=== PATIENT | male | born 1990 | race Caucasian/White ===

== ENCOUNTER 2017-04-26 14:26 | Emergency (ER) | payer OTHER ==
[2017-04-26 14:36] VITALS: BP 139/81
[2017-04-26] MEDS ORDERED: Lidocaine 1% 20 ML MDV INJECT ONE (14:39)
[2017-04-26] MEDS ORDERED: Lidocaine 1% 10 ML MDV ONE (14:46)
[2017-04-26] MEDS ORDERED: Ketorolac 30 MG/ML SDV IVPUSH ONE (14:48)
[2017-04-26] MEDS ORDERED: Sodium Chloride 0.9% 10 ML Syringe FLUSH PRN (14:48)
[2017-04-26] MEDS ORDERED: ceFAZolin 1 GM in Premix Bag 1 BAG IV ONE (14:48)
[2017-04-26] MEDS ORDERED: HYDROmorphone 0.5 MG/0.5 ML Syringe IVPUSH ONE ×2 (14:49→16:53)
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
[2017-04-26] MEDS ORDERED: Diphtheria,Pertussis(Acell),Tetanus Vaccine 0.5 ML SDV IM ONE (16:52)
[2017-04-26] MEDS ORDERED: Acetaminophen/oxyCODONE 325-5 MG Tab PO ONE (16:53)
== END 2017-04-26 17:20 | disposition home or self-care (01) ==
LOC: JD.ED 14:26
DX: S61.213A Laceration without foreign body of left middle finger without damage to nail, initial encounter (principal); W31.89XA Contact with other specified machinery, initial encounter; Y92.65 Oil rig as the place of occurrence of the external cause; Y99.0 Civilian activity done for income or pay
CPT/HCPCS: 12002; 90471; 90715; 96365; 96375; 99283; A9270; J0690; J1170; J1885; J7050; 12042; 99284-25

== ENCOUNTER 2017-04-27 16:09 | Emergency (ER) | payer OTHER ==
[2017-04-27 16:24] VITALS: BP 130/70
--- NOTE | 2017-04-27 17:04 | EDM.PDOC ---
ED HPI GENERAL MEDICAL PROBLEM - General Chief Complaint: Upper Extremity Injury/Pain Stated Complaint: MIDDLE FINGER PAIN CONCERNS ABOUT MEDICINE FOR IT Time Seen by Provider: 04/27/17 16:45 Source of Information: Reports: Patient History Limitations: Reports: No Limitations - History of Present Illness INITIAL COMMENTS - FREE TEXT/NARRATIVE: Patient is a 26-year-old male who presents to the ED complaining of pain to the left middle finger and upset stomach with taking the Keflex. Patient was evaluated yesterday in the ED by myself after suffering a crush injury to the affected finger. Patient had 2 fairly large lacerations to the palmar and also dorsal aspect of the finger that were involving the flexor and extensor tendons. Patient was started on Keflex 500 mg 4 times a day and was discharged home with hydrocodone for pain. Patient has increasing pain to the affected finger. He was instructed by the occupational med doctor to cleanse the finger 3 times a day with reapplication of triple antibiotics ointment in the morning and evening. He has noticed that the dressing has been sticking to the wound sites causing worsening pain. He has not noticed any increased redness, swelling , or purulent drainage. Pain is localized. He has not been applying any ice to the affected finger nor has he been elevating it when able. States his stomach is upset with taking the Keflex. He has no diarrhea. Minimal nausea. He has been taking ibuprofen with the Keflex as well. He denies any additional complaints at this time. Left Hand Pain Score (Numeric/FACES): 7 - Related Data Allergies Allergy/AdvReac Type Severity Reaction Status Date / Time No Known Allergies Allergy Verified 04/27/17 16:19 Home Meds: Home Meds Cephalexin [Keflex] 500 mg PO Q6HR #40 cap 04/26/17 [Rx] Acetaminophen/HYDROcodone [Lind 325-5 MG] 1 tab PO Q6H PRN #15 tablet 04/27/17 [Rx] Ondansetron [Zofran ODT] 4 mg PO Q6H PRN #12 tab.dis 04/27/17 [Rx] Past Medical History - Past Health History Medical/Surgical History: Denies Medical/Surgical History - Past Surgical History HEENT Surgical History: Reports: Oral Surgery Other HEENT Surgeries/Procedures: wisdom teeth removed GI Surgical History: Reports: Hernia, Inguinal Social & Family History - Family History Family Medical History: Noncontributory - Tobacco Use Smoking Status *Q: Never Smoker - Caffeine Use Caffeine Use: Reports: Coffee - Recreational Drug Use Recreational Drug Use: No - Living Situation & Occupation Living situation: Reports: , with Family Occupation: Employed Review of Systems - Review of Systems Review Of Systems: ROS reveals no pertinent complaints other than HPI. ED EXAM, GENERAL - Physical Exam Exam: See Below Exam Limited By: No Limitations General Appearance: Alert, WD/WN, No Apparent Distress Ears: Hearing Grossly Normal Nose: Normal Inspection Throat/Mouth: Normal Voice, No Airway Compromise Neck: Normal Inspection, Supple Respiratory/Chest: No Respiratory Distress, No Accessory Muscle Use Cardiovascular: Normal Peripheral Pulses, Regular Rate, Rhythm Peripheral Pulses: 2+: Radial (L) Extremities: Other (Left middle finger: Swollen, laceration intact with sutures present. No increasing redness, or purulent drainage present. Pain with palpation. Patient able extend and flex the finger against resistance with minimal discomfort. No sensory deficits distally. He is not able to fully extend or flex the finger at the PIP/DIP/MCP secondary to swelling present. No additional concerning findings at this point.) Neurological: Alert, Oriented, CN II-XII Intact, Normal Cognition, No Motor/ Sensory Deficits Psychiatric: Normal Affect, Normal Mood Skin Exam: Warm, Dry, Normal Color Course - Vital Signs Last Recorded V/S: Last Vital Signs Temp 98.5 F 04/27/17 16:20 Pulse 54 L 04/27/17 16:20 Resp 16 04/27/17 16:20 BP 130/70 04/27/17 16:20 Pulse Ox 99 04/27/17 16:20 - Re-Assessments/Exams Free Text/Narrative Re-Assessment/Exam: Reexamination of the finger did not elicit any concerning findings at this point. Lacerations are intact. Patient has no sensory deficits distally. He is able to extend and flex the finger against resistance with minimal discomfort. Decreased flexion and extension at the MCP, PIP, DIP secondary to swelling. Will have the wound redressed with bacitracin and nonadherent dressing. Splint will be applied. Patient will follow back up with occupational med provider and Dr. Lemuel waite for reevaluation. In addition will was fried patient a prescription for Zofran to take as needed for nausea. I have instructed the patient to refrain from taking ibuprofen and Keflex at the same time. Departure - Departure Time of Disposition: 17:04 Disposition: Home, Self-Care 01 Condition: Good Clinical Impression: Laceration of left middle finger with tendon involvement Finger laceration involving tendon Qualifiers: Encounter type: initial encounter Qualified Code(s): S61.219A - Laceration without foreign body of unspecified finger without damage to nail, initial encounter - Discharge Information Prescriptions: Acetaminophen/HYDROcodone [Lind 325-5 MG] 1 tab PO Q6H PRN #15 tablet PRN Reason: Pain (Severe 7-10) Ondansetron [Zofran ODT] 4 mg PO Q6H PRN #12 tab.dis PRN Reason: Nausea/Vomiting Instructions: Laceration Care, Adult, [id number] Referrals: PCP,None [Primary Care Provider] - Forms: ED Department Discharge Additional Instructions: Utilize Tylenol and ibuprofen in alternating fashion for pain. Place ice to affected area 4-6 times daily, 20 minutes in duration, do not apply ice directly on the skin. Keep area clean and dry. Wash three times daily with soap and water, pat dry, reapply Triple Antibiotic ointment in the a.m. and p.m with new dressing. Elevate when able to reduce any swelling and pain. Wear splint until evaluated by Dr. Pitts. Continue taking Keflex as prescribed. Utilize Zofran 1 tablet 6 hours as needed for nausea. Suggest taking ibuprofen and Keflex together since this may be causing some stomach irritation. Dr. Pitts orthopedic surgeon and occupational med provider as scheduled for continued reevaluation and treatment. Return to ED as needed for any new or worsening symptoms.
== END 2017-04-27 17:15 | disposition home or self-care (01) ==
LOC: JD.ED 16:09
DX: S61.213A Laceration without foreign body of left middle finger without damage to nail, initial encounter (principal); Z98.890 Other specified postprocedural states; W23.0XXA Caught, crushed, jammed, or pinched between moving objects, initial encounter
CPT/HCPCS: 99282; 99283

== ENCOUNTER 2017-04-28 21:14 | Emergency (ER) | payer OTHER ==
[2017-04-28 21:26] VITALS: BP 139/98
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
== END 2017-04-28 23:20 | disposition home or self-care (01) ==
LOC: JD.ED 21:14
DX: S67.193D Crushing injury of left middle finger, subsequent encounter (principal); X58.XXXD Exposure to other specified factors, subsequent encounter
CPT/HCPCS: 99282

== ENCOUNTER 2017-07-04 22:09 | Emergency (ER) | payer OTHER ==
[2017-07-04 22:26] VITALS: BP 154/94
--- NOTE | 2017-07-04 22:42 | EDM.PDOC ---
ED HPI GENERAL MEDICAL PROBLEM - General Chief Complaint: Skin Complaint Stated Complaint: SHOULDER LEFT HURTS THINKS INFECTION Time Seen by Provider: 07/04/17 22:34 Source of Information: Reports: Patient History Limitations: Reports: No Limitations - History of Present Illness INITIAL COMMENTS - FREE TEXT/NARRATIVE: 27-year-old male attends the ED with painful red swelling left upper shoulder area. Patient reports that 6 days ago he received a steroid injection from a friend. He states that he felt a lump in the area about a day later and it has remained somewhat sore. He states that it's developed increased redness and pain over the last 24-36 hours. Patient was seen in clinic earlier today and identified to have influenza A. [place] out of the [place]. Is thus started on Tamiflu. Says fever and chills related to the influenza and will be impossible to tell whether or not the cellulitis is continuing to febrile illness. Patient reports influenza screen today was positive for influenza A virus.. A chest x- ray done to rule out a pneumonia and was reported to be negative. He did not have lab work performed. Onset: Gradual Onset Date: 07/03/17 Duration: Day(s): Location: Reports: Upper Extremity, Left Quality: Reports: Ache (Left shoulder in the deltoid distribution.), Burning Severity: Moderate Improves with: Reports: None Worsens with: Reports: Other Context: Reports: Other (Steroid injection in this area 6 days ago. Given by a friend.). Denies: Activity, Exercise (Touching the area.), Lifting, Sick Contact Associated Symptoms: Reports: Cough, Diaphoresis, Fever/Chills (Diagnosed earlier today with influenza A virus and is on Tamiflu.), Other (Anorexia). 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 (Motrin for pain and fever relief) Left Upper Arm Pain Score (Numeric/FACES): 4 - Related Data Allergies Allergy/AdvReac Type Severity Reaction Status Date / Time No Known Allergies Allergy Verified 07/04/17 22:21 Home Meds: Home Meds Ciprofloxacin HCl [Cipro] 500 mg PO BID #14 tablet 07/04/17 [Rx] Doxycycline [Vibramycin] 100 mg PO Q12HR #20 cap 07/04/17 [Rx] Oseltamivir [Tamiflu] 75 mg PO BID 11/27/17 [History] Past Medical History - Past Health History Medical/Surgical History: Denies Medical/Surgical History - Past Surgical History HEENT Surgical History: Reports: Oral Surgery Other HEENT Surgeries/Procedures: wisdom teeth removed GI Surgical History: Reports: Hernia, Inguinal Social & Family History - Family History Family Medical History: Noncontributory - Tobacco Use Smoking Status *Q: Never Smoker Packs/Tins Daily: 0.5 - Caffeine Use Caffeine Use: Reports: None - Recreational Drug Use Recreational Drug Use: No - Living Situation & Occupation Living situation: Reports: , with Spouse, with Family Occupation: Employed ED ROS GENERAL - Review of Systems Review Of Systems: See Below Constitutional: Reports: Fever, Chills, Malaise, Weakness, Fatigue, Decreased Appetite. Denies: Weight Loss HEENT: Denies: Ear Pain, Throat Swelling Respiratory: Reports: Cough (Paroxysmal cough for the most part nonproductive). Denies: Wheezing, Pleuritic Chest Pain Cardiovascular: Reports: No Symptoms Endocrine: Reports: Fatigue GI/Abdominal: Reports: Decreased Appetite. Denies: Abdominal Pain : Reports: No Symptoms Musculoskeletal: Reports: Muscle Pain (Generalized myalgia.) Skin: Reports: Erythema Neurological: Reports: No Symptoms Psychiatric: Reports: No Symptoms Hematologic/Lymphatic: Reports: No Symptoms Immunologic: Reports: No Symptoms ED EXAM, SKIN/RASH Exam: See Below Exam Limited By: No Limitations General Appearance: Alert, WD/WN, No Apparent Distress, Other Extremities: Other (Evaluation of the left upper extremity shows erythema in the deltoid muscle distribution partially 5 cm inferior to the acromion process. Skin is warm to touch and red.) Neurological: Alert, Oriented, CN II-XII Intact, Normal Cognition Psychiatric: Normal Affect, Normal Mood Skin: Warm, Dry, Intact, Normal Color, No Rash Course - Vital Signs Last Recorded V/S: Last Vital Signs Temp 37.2 C 07/04/17 22:22 Pulse 97 07/04/17 22:22 Resp 18 07/04/17 22:22 BP 154/94 H 07/04/17 22:22 Pulse Ox 96 07/04/17 22:22 - Orders/Labs/Meds Orders: Active Orders 24 hr Category Date Time Status Peripheral IV Care [RC] . DIRECTED Care 07/04/17 22:43 Active Sodium Chloride 0.9% [Saline Flush] Med 07/04/17 22:43 Active 10 ml FLUSH ASDIRECTED PRN Peripheral IV Insertion Adult [OM.PC] Stat Oth 07/04/17 22:43 Ordered Medication Orders Sodium Chloride (Saline Flush) 10 ml FLUSH ASDIRECTED PRN PRN Reason: Keep Vein Open Last Admin: 07/04/17 22:53 Dose: 10 ml Labs: Laboratory Tests 07/04/17 07/04/17 Range/Units 22:50 22:50 WBC 6.87 (4.23-9.07) K/mm3 RBC 5.52 (4.63-6.08) M/mm3 Hgb 16.1 (13.7-17.5) gm/L Hct 45.8 (40.1-51.0) % MCV 83.0 (79.0-92.2) fl MCH 29.2 (25.7-32.2) pg MCHC 35.2 (32.2-35.5) g/dl RDW Std Deviation 43.3 (35.1-43.9) fL Plt Count 179 (163-337) K/mm3 MPV 9.8 (9.4-12.3) fl Neutrophils % (Manual) 61 H (40-60) % Band Neutrophils % 0 (0-10) % Lymphocytes % (Manual) 26 (20-40) % Atypical Lymphs % 0 % Monocytes % (Manual) 8 (2-10) % Eosinophils % (Manual) 5 (0.8-7.0) % Basophils % (Manual) 0 L (0.2-1.2) Platelet Estimate Adequate Plt Morphology Comment Normal RBC Morph Comment Normal Sodium 139 (136-145) mEq/L Potassium 3.3 L (3.5-5.1) mEq/L Chloride 103 (98-107) mEq/L Carbon Dioxide 24 (21-32) mEq/L Anion Gap 15.3 H (5-15) BUN 16 (7-18) mg/dL Creatinine 1.2 (0.7-1.3) mg/dL Est Cr Clr Drug Dosing 97.61 mL/min Estimated GFR (MDRD) > 60 (>60) mL/min BUN/Creatinine Ratio 13.3 L (14-18) Glucose 83 (74-106) mg/dL Calcium 8.7 (8.5-10.1) mg/dL Total Bilirubin 0.4 (0.2-1.0) mg/dL AST 58 H (15-37) U/L ALT 79 H (16-63) U/L Alkaline Phosphatase 40 L (46-116) U/L C-Reactive Protein 1.6 H* (<1.0) mg/dL Total Protein 7.2 (6.4-8.2) g/dl Albumin 3.8 (3.4-5.0) g/dl Globulin 3.4 gm/dL Albumin/Globulin Ratio 1.1 (1-2) Meds: Medications Generic Name Dose Route Start Last Admin Trade Name Freq PRN Reason Stop Dose Admin Sodium Chloride 10 ml 07/04/17 22:43 07/04/17 22:53 Saline Flush FLUSH 10 ml ASDIRECTED PRN Administration Keep Vein Open Discontinued Medications Generic Name Dose Route Start Last Admin Trade Name Freq PRN Reason Stop Dose Admin Doxycycline Hyclate 200 mg 07/04/17 22:44 07/04/17 22:53 Vibramycin PO 07/04/17 22:45 200 mg ONETIME ONE Administration Ceftriaxone Sodium 2 gm/ 100 mls @ 200 mls/hr 07/04/17 22:43 07/04/17 22:52 Sodium Chloride IV 07/04/17 23:12 200 mls/hr ONETIME ONE Administration - Radiology Interpretation Free Text/Narrative:: 27-year-old male presents the ED for evaluation of left shoulder pain. Patient reports erythema and swelling in this area. He reports a friend gave him a steroid injection proximal be 6 days ago in the left deltoid area. He felt a nodular swollen area about a day and a half after the injection suggesting possible hematoma formation. Subsequently the areas become inflamed reddened and increasingly painful over the last 24 hours. Interestingly he presented to the clinic earlier today with a three-day history of paroxysmal cough body ache and headache and diagnosed with influenza A. He is currently on Tamiflu. Did have a chest x-ray done today which was proved to be negative for pneumonia. Examination does reveal inflammation of the skin and erythema and increased warmth in the distribution of the upper deltoid muscle. He is afebrile at this time. Plan suspect staph aureus cellulitis. Rocephin 2 g IV will be given. Routine labs collected and CRP but no blood cultures as he is afebrile at this time. Also given doxycycline 200 mg orally for MRSA coverage. Plan will be to allow him to go home on oral antibiotics for the next 10 days i.e. Cipro 500 mg twice a day 4-7 days and doxycycline 100 mg twice a day for 10 days. - Re-Assessments/Exams Free Text/Narrative Re-Assessment/Exam: 07/04/17 23:36 labs reveal a normal white count at 6.87 with 61% neutrophils and no bands reported. Hemoglobin is 16.1 with a hematocrit of 45.8. Platelets 179,000. Chemistries essentially normal other than a slightly low serum potassium at 3.3 characteristic of not eating much the last few days due to influenza. Anion gap is 15.3. CRP was 1.6. Therefore the patient does not show any significant signs of systemic infection at this time. He is completed 2 g of Rocephin IV. He will be discharged home on doxycycline 100 mg twice daily for 10 days and Cipro 500 mg twice a day for 7 days to clear up cellulitis left deltoid aspect of the shoulder. Departure - Departure Time of Disposition: 23:32 Disposition: Home, Self-Care 01 Condition: Fair Clinical Impression: Cellulitis Qualifiers: Site of cellulitis: extremity Site of cellulitis of extremity: upper extremity Laterality: left Qualified Code(s): L03.114 - Cellulitis of left upper limb - Discharge Information Prescriptions: Doxycycline [Vibramycin] 100 mg PO Q12HR #20 cap Ciprofloxacin HCl [Cipro] 500 mg PO BID #14 tablet Instructions: Cellulitis, Adult Referrals: PCP,None [Primary Care Provider] - Forms: ED Department Discharge Additional Instructions: Evaluation in the emergency room tonight in regards to increasing pain and swelling and redness of the left upper shoulder. This has developed since an IM injection of steroid was given by her friend approximate 6 days ago. Examination reveals infection under the skin which we call cellulitis. This is almost always caused by a skin organism called staph aureus. You're already clinically ill with influenza A virus diagnosed earlier today. You're therefore treated with intravenous antibiotic Rocephin 2 g and started on oral doxycycline 200 mg as well. Treatment at home will be to continue oral antibiotic Cipro 500 mg twice a day for 1 week and doxycycline 100 mg tablet twice daily for 10 days to ensure eradication of skin infection. These medications should interact okay with her Tamiflu and you are advised to continue with this. Continue Motrin 600 mg every 6 hours needed for fever and/ or muscle pain relief and headache relief. Expect redness and swelling of the left upper shoulder to look and feel much better over the next 48-72 hours. If swelling redness are not markedly improved in 72 hours time he need to return to medical care. - My Orders Last 24 Hours: My Active Orders 07/04/17 22:43 Peripheral IV Care [RC] . DIRECTED Sodium Chloride 0.9% [Saline Flush] 10 ml FLUSH ASDIRECTED PRN Peripheral IV Insertion Adult [OM.PC] Stat - Assessment/Plan Last 24 Hours: My Active Orders 07/04/17 22:43 Peripheral IV Care [RC] . DIRECTED Sodium Chloride 0.9% [Saline Flush] 10 ml FLUSH ASDIRECTED PRN Peripheral IV Insertion Adult [OM.PC] Stat
[2017-07-04] MEDS ORDERED: cefTRIAXone 2 GM in Sodium Chloride 0.9% 100 ML IV ONE (22:43)
[2017-07-04] MEDS ORDERED: Sodium Chloride 0.9% 10 ML Syringe FLUSH PRN (22:43)
[2017-07-04] MEDS ORDERED: Doxycycline 100 MG Cap PO ONE (22:44)
== END 2017-07-04 23:35 | disposition home or self-care (01) ==
LOC: JD.ED 22:09
DX: L03.114 Cellulitis of left upper limb (principal)
CPT/HCPCS: 36415; 80053; 85025; 86140; 96365; 99283; A9270; J0696; J7030; J7050

== ENCOUNTER 2017-10-25 18:39 | Inpatient (IN) | payer OTHER ==
[2017-10-25] MEDS ORDERED: HYDROmorphone 0.5 MG/0.5 ML SYRINGE IVPUSH ONE ×2 (19:06→20:43)
[2017-10-25] MEDS ORDERED: Metoclopramide 10 MG/2 ML SDV IVPUSH ONE (19:07)
--- NOTE | 2017-10-25 19:11 | EDM.PDOC ---
ED HPI GENERAL MEDICAL PROBLEM - General Chief Complaint: Chest Pain Stated Complaint: PAIN UNDER RT RIB Time Seen by Provider: 10/25/17 19:00 Source of Information: Reports: Patient History Limitations: Reports: No Limitations - History of Present Illness INITIAL COMMENTS - FREE TEXT/NARRATIVE: 27-year-old male presents to the ED with diffuse pain along the right costal margin rating down the lateral aspect of the costal margin to around infrascapular area. Pain has been constant for the last 2-1/2 days. Barely slept at all last night due to no position being comfortable. Hurts to breathe hurts to cough or sneeze. Pain is not aggravated by eating however. Bowel function is negative for any diarrhea. He is not aware of any fever or chills. Associated mild intermittent nausea due to the intensity of the pain. No dysuria urgency frequency or blood noticed in the urine. No previous similar problems. Did have 3-1/[address] [employer] but usually doesn't drink much. No associated nausea vomiting after drinking. No trouble swallowing. No prone to heartburn. No previous abdominal surgery. 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 Onset: Gradual Onset Date: 10/22/17 Duration: Day(s): Location: Reports: Abdomen (Right upper quadrant of the abdomen along the costal margin from epigastrium to right infrascapular area.) Quality: Reports: Ache (Pain is constant with a intermittent sharp stabbing pain with deep breathing.), Sharp, Stabbing Severity: Moderate Improves with: Reports: Rest Worsens with: Reports: Other (As with deep breathing coughing and sneezing.), Movement (Breathing shallowly and lying really still helps somewhat.) Context: Denies: Activity, Exercise, Lifting, Sick Contact, Trauma Associated Symptoms: Reports: Shortness of Breath (Can't take a deep breath as it makes the pain worse.). 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 (see below) Right Chest Pain Score (Numeric/FACES): 8 - Related Data Allergies Allergy/AdvReac Type Severity Reaction Status Date / Time No Known Allergies Allergy Verified 10/25/17 18:52 Home Meds: Home Meds Minocycline [Minocin] 100 mg PO BID 10/25/17 [History] Propranolol [Inderal LA 24 Hr] 60 mg PO DAILY 10/25/17 [History] Past Medical History - Past Health History Medical/Surgical History: Denies Medical/Surgical History - Past Surgical History HEENT Surgical History: Reports: Oral Surgery Other HEENT Surgeries/Procedures: wisdom teeth removed GI Surgical History: Reports: Hernia, Inguinal Social & Family History - Family History Family Medical History: Noncontributory - Tobacco Use Smoking Status *Q: Never Smoker Packs/Tins Daily: 0.5 - Caffeine Use Caffeine Use: Reports: None - Recreational Drug Use Recreational Drug Use: No - Living Situation & Occupation Living situation: Reports: , with Spouse, with Family Occupation: Employed ED ROS GENERAL - Review of Systems Review Of Systems: See Below Constitutional: Reports: Fatigue (from not sleeping). Denies: Fever, Chills, Malaise, Decreased Appetite, Weight Loss ( well.) HEENT: Reports: No Symptoms Respiratory: Reports: Shortness of Breath. Denies: Wheezing, Pleuritic Chest Pain, Cough, Sputum, Hemoptysis Cardiovascular: Reports: Dyspnea on Exertion. Denies: Chest Pain, Blood Pressure Problem, Claudication, Edema, Lightheadedness, Orthopnea GI/Abdominal: Reports: Abdominal Pain. Denies: Anorexia (See history of present illness), Black Stool, Constipation, Diarrhea, Difficulty Swallowing, Distension, Flatus, Hematemesis, Hematochezia, Melena, Mucous in Stool, Nausea, Stool Incontinence, Vomiting : Reports: Flank Pain. Denies: Frequency, Hematuria Musculoskeletal: Reports: No Symptoms (Mild on the right side more infrascapular area.) Skin: Reports: No Symptoms Neurological: Reports: No Symptoms Psychiatric: Reports: No Symptoms Hematologic/Lymphatic: Reports: No Symptoms Immunologic: Reports: No Symptoms ED EXAM, GI/ABD - Physical Exam Exam: See Below Exam Limited By: No Limitations General Appearance: Alert, WD/WN, Moderate Distress (In obvious discomfort.) Eyes: Bilateral: Normal Appearance (No jaundice.) Throat/Mouth: Normal Inspection, Normal Lips, Normal Teeth, Normal Oropharynx Head: Atraumatic, Normocephalic Neck: Normal Inspection, Supple, Non-Tender, Full Range of Motion. No: Lymphadenopathy (L), Lymphadenopathy (R) Respiratory/Chest: Lungs Clear, Normal Breath Sounds, No Accessory Muscle Use, Chest Non-Tender, Other (Compression of his ribs does not cause) Cardiovascular: Normal Peripheral Pulses ( worsening of the pain.), Regular Rate , Rhythm, No Edema, No Gallop, No Murmur GI/Abdominal Exam: No Mass, Pelvis Stable, Guarding, Rebound (mild RUQ/ epigastrium), Tender (Very tender epigastrium and along the right costal margin with a positive Aquino's sign.), Abnormal Bowel Sounds (Mildly hyperactive bowel sounds in all 4 quadrants.). No: Rigid Back Exam: Normal Inspection, Full Range of Motion. No: CVA Tenderness (L), CVA Tenderness (R) Extremities: Normal Inspection, Normal Range of Motion, Non-Tender, No Pedal Edema Neurological: Alert, Oriented, CN II-XII Intact, Normal Cognition, Normal Gait Psychiatric: Normal Affect, Normal Mood Skin Exam: Warm, Dry, Intact, Normal Color, No Rash Course - Vital Signs Last Recorded V/S: Last Vital Signs Temp 36.9 C 10/25/17 18:57 Pulse 69 10/25/17 20:53 Resp 18 10/25/17 20:53 BP 124/66 10/25/17 20:53 Pulse Ox 98 10/25/17 20:53 - Orders/Labs/Meds Orders: Active Orders 24 hr Category Date Time Status Admission Status [Patient Status] [ADT] Routine ADT 10/25/17 22:01 Active Abdomen 1V Flat [CR] Stat Exams 10/25/17 19:07 Taken Abdomen Pelvis w Cont [CT] Stat Exams 10/25/17 21:03 Taken Chest 1V Frontal [CR] Stat Exams 10/25/17 19:07 Taken Dextrose 5%-0.9% NaCl [Dextrose 5%-Normal Saline] 1,000 Med 10/25/17 19:15 Active ml IV ASDIRECTED Medication Orders Dextrose/Sodium Chloride (Dextrose 5%-Normal Saline) 1,000 mls @ 150 mls/hr IV ASDIRECTED MARIBEL Last Admin: 10/25/17 19:30 Dose: 150 mls/hr Labs: Laboratory Tests 10/25/17 10/25/17 10/25/17 Range/Units 20:30 20:30 20:30 WBC 6.92 (4.23-9.07) K/mm3 RBC 6.04 (4.63-6.08) M/mm3 Hgb 15.9 (13.7-17.5) gm/L Hct 47.9 (40.1-51.0) % MCV 79.3 (79.0-92.2) fl MCH 26.3 (25.7-32.2) pg MCHC 33.2 (32.2-35.5) g/dl RDW Std Deviation 48.4 H (35.1-43.9) fL Plt Count 211 (163-337) K/mm3 MPV 9.6 (9.4-12.3) fl Neutrophils % (Manual) 72 H (40-60) % Band Neutrophils % 0 (0-10) % Lymphocytes % (Manual) 20 (20-40) % Atypical Lymphs % 0 % Monocytes % (Manual) 2 (2-10) % Eosinophils % (Manual) 5 (0.8-7.0) % Basophils % (Manual) 1 (0.2-1.2) Platelet Estimate Adequate Plt Morphology Comment Normal RBC Morph Comment Normal Sodium 140 (136-145) mEq/L Potassium 4.3 (3.5-5.1) mEq/L Chloride 106 (98-107) mEq/L Carbon Dioxide 24 (21-32) mEq/L Anion Gap 14.3 (5-15) BUN 14 (7-18) mg/dL Creatinine 1.0 (0.7-1.3) mg/dL Est Cr Clr Drug Dosing 117.13 mL/min Estimated GFR (MDRD) > 60 (>60) mL/min BUN/Creatinine Ratio 14.0 (14-18) Glucose 146 H (74-106) mg/dL Calcium 8.6 (8.5-10.1) mg/dL Magnesium (1.8-2.4) mg/dl Total Bilirubin 0.5 (0.2-1.0) mg/dL GGT 2 L (15-85) U/L AST 46 H (15-37) U/L ALT 77 H (16-63) U/L Alkaline Phosphatase 61 (46-116) U/L C-Reactive Protein 0.4 (<1.0) mg/dL Total Protein 6.7 (6.4-8.2) g/dl Albumin 3.3 L (3.4-5.0) g/dl Globulin 3.4 gm/dL Albumin/Globulin Ratio 1.0 (1-2) Lipase 2217 H (73-393) U/L Ethyl Alcohol 0.00 (0.00) gm% 10/25/17 Range/Units 20:30 WBC (4.23-9.07) K/mm3 RBC (4.63-6.08) M/mm3 Hgb (13.7-17.5) gm/L Hct (40.1-51.0) % MCV (79.0-92.2) fl MCH (25.7-32.2) pg MCHC (32.2-35.5) g/dl RDW Std Deviation (35.1-43.9) fL Plt Count (163-337) K/mm3 MPV (9.4-12.3) fl Neutrophils % (Manual) (40-60) % Band Neutrophils % (0-10) % Lymphocytes % (Manual) (20-40) % Atypical Lymphs % % Monocytes % (Manual) (2-10) % Eosinophils % (Manual) (0.8-7.0) % Basophils % (Manual) (0.2-1.2) Platelet Estimate Plt Morphology Comment RBC Morph Comment Sodium (136-145) mEq/L Potassium (3.5-5.1) mEq/L Chloride (98-107) mEq/L Carbon Dioxide (21-32) mEq/L Anion Gap (5-15) BUN (7-18) mg/dL Creatinine (0.7-1.3) mg/dL Est Cr Clr Drug Dosing mL/min Estimated GFR (MDRD) (>60) mL/min BUN/Creatinine Ratio (14-18) Glucose (74-106) mg/dL Calcium (8.5-10.1) mg/dL Magnesium 2.2 (1.8-2.4) mg/dl Total Bilirubin (0.2-1.0) mg/dL GGT (15-85) U/L AST (15-37) U/L ALT (16-63) U/L Alkaline Phosphatase (46-116) U/L C-Reactive Protein (<1.0) mg/dL Total Protein (6.4-8.2) g/dl Albumin (3.4-5.0) g/dl Globulin gm/dL Albumin/Globulin Ratio (1-2) Lipase (73-393) U/L Ethyl Alcohol (0.00) gm% Meds: Medications Generic Name Dose Route Start Last Admin Trade Name Kamronq PRN Reason Stop Dose Admin Dextrose/Sodium Chloride 1,000 mls @ 150 mls/hr 10/25/17 19:15 10/25/17 19:30 Dextrose 5%-Normal Saline IV 150 mls/hr ASDIRECTED MARIBEL Administration Discontinued Medications Generic Name Dose Route Start Last Admin Trade Name Kamronq PRN Reason Stop Dose Admin Hydromorphone HCl 1 mg 10/25/17 19:06 10/25/17 19:27 Dilaudid IVPUSH 10/25/17 19:07 1 mg ONETIME ONE Administration Hydromorphone HCl 1 mg 10/25/17 20:43 10/25/17 20:52 Dilaudid IVPUSH 10/25/17 20:44 1 mg ONETIME ONE Administration Iopamidol 125 ml 10/25/17 21:39 10/25/17 21:41 Isovue-300 (61%) IVPUSH 10/25/17 21:40 125 ml ONETIME ONE Administration Meperidine HCl 50 mg 10/25/17 21:14 10/25/17 21:21 Demerol IVPUSH 10/25/17 21:15 50 mg ONETIME ONE Administration Meperidine HCl 75 mg 10/25/17 22:05 10/25/17 22:21 Demerol IVPUSH 10/25/17 22:06 75 mg ONETIME ONE Administration Meperidine HCl Confirm 10/25/17 22:24 10/25/17 22:23 Demerol Administered 10/25/17 22:25 Not Given Dose 100 mg .ROUTE .STK-MED ONE Metoclopramide HCl 10 mg 10/25/17 19:07 10/25/17 19:27 Reglan IVPUSH 10/25/17 19:08 10 mg ONETIME ONE Administration - Radiology Interpretation Free Text/Narrative:: 27-year-old male presents to the ED with a history of persistent right upper quadrant abdominal pain for the last 2 and half days. Pain is constant and intermittently gets a little bit worse i.e. colicky component. Pain radiates around the costal margin to just infrascapularly on the right side. Her's to deep breathe hurts to cough versus days. He is aware of pain when his vehicle hits potholes etc. Mild associated nausea due to the intensity of the pain. No vomiting. He can eat normally. Eating doesn't seem to make the pain any worse. He did eat at 1700 hrs. today mostly is on new without exacerbation of the pain. Examination reveals marked tenderness along the right costal margin in the distribution of the gallbladder with a positive Aquino sign. Bowel sounds are quite active in all 4 quadrants. No pain on compression of the true chest wall. Plan 1 view chest x-ray to be done to rule out any inflammation of the lower part of the diaphragm. One view of the abdomen will be obtained. Routine labs to be done. IV will be D5 normal saline at 500 mils per hour. A GGT will be ordered as well. - Re-Assessments/Exams Free Text/Narrative Re-Assessment/Exam: 10/25/17 19:43 1 view chest x-ray is within normal limits although by portable technique it suggests that he has mild cardiomegaly. Lungs are clear. The diaphragm particular in the right side is well visualized with no sign of inflammation in the lower lung field. One view of the abdomen shows increased stool throughout the right hemicolon then across the transverse colon. There are no signs of bowel obstruction. 10/25/17 20:43 apparently there was a significant delay in getting his labs drawn and therefore the delay in getting results. Patient reports initially pain did improve. It is now coming back and rates it as a 7-8 out of 10. Will repeat Dilaudid 1 mg IV. 10/25/17 21:05 Labs are starting to come back. White count is 6.92 with differential pending. Hemoglobin is 15.9 with hematocrit of 47.9. Platelet count is 211,000. Sodium was 140 with potassium of 4.3. Chloride 106 with a bicarbonate of 24. And a gap is 14.3 with a BUN of 14. Creatinine is 1.0. Glucose is 146. Calcium is 8.6. Total bilirubin 0.5 GGT normal at 2. AST is 46 mildly elevated ALT is mildly elevated at 77. Alk phosphatase is 61. C-reactive protein is 0.4. Albumin fraction slightly low at 3.3. Lipase is markedly elevated at 2217. Diagnosis is therefore acute pancreatitis without evidence of biliary tree obstruction. CT of the abdomen with IV contrast only will be performed. 10/25/17 21:15 patient still reports his pain as 8 out of 10. Give him Demerol 50 mg IV. Discussed need for admission to the hospital due to pain control and IV fluid requirements. We'll have CT of his abdomen with IV contrast first. 10/25/17 21:39 Blood alcohol level at this time is 0. Magnesium is normal at 2.2. Differential shows 72% neutrophils with no bands. 10/25/17 22:00 spoke with naturopathic oncology provider hospitalist Dr. Nixon and he has accepted care of this patient. To be admittedto Med -surgical floor on telemetry. 10/25/17 22:05 pain is still rated as 7 or 8 out of 10. States the medicine lasts for maybe half hour and then seems to wear off. Will give Demerol 75 mg IV. Departure - Departure Time of Disposition: 22:30 Disposition: Admitted As Inpatient 65 Condition: Fair Clinical Impression: Acute pancreatitis Qualifiers: Pancreatitis type: unspecified pancreatitis type - Discharge Information - My Orders Last 24 Hours: My Active Orders 10/25/17 19:07 Abdomen 1V Flat [CR] Stat Chest 1V Frontal [CR] Stat 10/25/17 19:15 Dextrose 5%-0.9% NaCl [Dextrose 5%-Normal Saline] 1,000 ml IV ASDIRECTED 10/25/17 21:03 Abdomen Pelvis w Cont [CT] Stat 10/25/17 22:01 Admission Status [Patient Status] [ADT] Routine - Assessment/Plan Last 24 Hours: My Active Orders 10/25/17 19:07 Abdomen 1V Flat [CR] Stat Chest 1V Frontal [CR] Stat 10/25/17 19:15 Dextrose 5%-0.9% NaCl [Dextrose 5%-Normal Saline] 1,000 ml IV ASDIRECTED 10/25/17 21:03 Abdomen Pelvis w Cont [CT] Stat 10/25/17 22:01 Admission Status [Patient Status] [ADT] Routine
[2017-10-25] MEDS: Dextrose 5%-0.9% NaCl 1,000 ML IV SCH (19:30)
[2017-10-25] MEDS ORDERED: Meperidine PF 50 MG/ML Syringe IVPUSH ONE (21:14)
[2017-10-25] MEDS ORDERED: Iopamidol 612 MG/ML 150 ML Bottle IVPUSH ONE (21:39)
[2017-10-25] MEDS ORDERED: Meperidine PF 75 MG/ML Syringe IVPUSH ONE (22:05)
[2017-10-25] MEDS ORDERED: Meperidine PF 50 MG/ML Syringe ONE (22:24)
--- NOTE | 2017-10-25 22:57 | PCM.HP ---
H&P History of Present Illness - General Date of Service: 10/25/17 Admit Problem/Dx: Acute Pancreatitis Source of Information: Patient, Family, Old Records, RN Notes Reviewed, Significant Other History Limitations: Reports: No Limitations - History of Present Illness Initial Comments - Free Text/Narative: This is a 27-year-old fairly healthy white male with past medical history of hypertension who comes in for evaluation of the abdominal pain associated with nausea and shortness of breath. His symptoms have been going on constantly for the past 2-1/2 days. His pain is aggravated by certain movements, eating, along with taking deep breaths. She denies any fever or chills. He denies any previous surgery except for an inguinal hernia in the past. His initial workup in emergency department shows a fairly unremarkable CBC. His chemistry is remarkable for glucose of 146, GGT of 2, AST of 46, ALT of 77, albumin 2.3, and lipase of 20 217. His TOMASA is 0. His abdomen/pelvis CT scan report reads nonspecific gallbladder wall edema. Patient is admitted for medical management of acute pancreatitis. Right Chest Pain Score (Numeric/FACES): 8 - Related Data Allergies/Adverse Reactions: Allergies Allergy/AdvReac Type Severity Reaction Status Date / Time No Known Allergies Allergy Verified 10/25/17 18:52 Home Medications: Home Meds Minocycline [Minocin] 100 mg PO BID 10/25/17 [History] Propranolol [Inderal LA 24 Hr] 60 mg PO DAILY 10/25/17 [History] Past Medical History - Past Health History Medical/Surgical History: Denies Medical/Surgical History - Past Surgical History HEENT Surgical History: Reports: Oral Surgery Other HEENT Surgeries/Procedures: wisdom teeth removed GI Surgical History: Reports: Hernia, Inguinal Social & Family History - Family History Family Medical History: Noncontributory - Tobacco Use Smoking Status *Q: Never Smoker Packs/Tins Daily: 0.5 - Caffeine Use Caffeine Use: Reports: None - Recreational Drug Use Recreational Drug Use: No - Living Situation & Occupation Living situation: Reports: , with Spouse, with Family Occupation: Employed H&P Review of Systems - Review of Systems: Review Of Systems: See Below General: Denies: Fever, Chills, Malaise, Weakness, Fatigue HEENT: Reports: No Symptoms Pulmonary: Reports: No Symptoms Cardiovascular: Denies: Chest Pain, Palpitations, Dyspnea on Exertion, Lightheadedness Gastrointestinal: Reports: Abdominal Pain, Flatus, Nausea. Denies: Constipation , Diarrhea, Decreased Appetite, Vomiting Genitourinary: Reports: No Symptoms Musculoskeletal: Reports: No Symptoms Skin: Denies: Cyanosis, Jaundice, Mottled, Pallor, Diaphoresis, Bruising, Pruritis, Rash, Erythema Psychiatric: Denies: Depression, Anxiety, Agitation, Hallucinations (Auditory) Neurological: Denies: Confusion, Pre-Existing Deficit, Difficulty Walking, Weakness, Gait Disturbance Hematologic/Lymphatic: Reports: No Symptoms Immunologic: Reports: No Symptoms Exam - Exam Exam: See Below - Vital Signs Vital Signs: Last Vital Signs Temp 36.9 C 10/25/17 18:57 Pulse 69 10/25/17 20:53 Resp 18 10/25/17 20:53 BP 124/66 10/25/17 20:53 Pulse Ox 98 10/25/17 20:53 Weight: 122.47 kg - Exam General: Alert, Oriented, Cooperative, Mild Distress HEENT: Conjunctiva Clear, EACs Clear, EOMI, Hearing Intact, Mucosa Moist & Eros , Nares Patent, Normal Nasal Septum, Posterior Pharynx Clear, Pupils Equal, Pupils Reactive Neck: Supple, Trachea Midline Lungs: Clear to Auscultation, Normal Respiratory Effort Cardiovascular: Regular Rate, Regular Rhythm GI/Abdominal Exam: Normal Bowel Sounds, Soft, No Organomegaly, No Distention, No Abnormal Bruit, No Mass, Tender, Other (RUQ Pain with palpation). No: Rebound (Male) Exam: Deferred Rectal (Males) Exam: Deferred Back Exam: Normal Inspection, Decreased Range of Motion Extremities: Normal Inspection, Normal Range of Motion, Non-Tender, No Pedal Edema, Normal Capillary Refill Peripheral Pulses: 3+: Posterior Tibial (L), Posterior Tibial (R), Dorsalis Pedis (L), Dorsalis Pedis (R) Skin: Warm, Dry, Intact, Other (Diffuse acne) Neuro Extensive - Mental Status: Oriented x3, Normal Cognition, Memory Intact Neuro Extensive - Motor, Sensory, Reflexes: CN II-XII Intact, Normal Gait Psychiatric: Alert, Normal Affect, Normal Mood - Patient Data Result Diagrams: 10/26/17 05:39 10/26/17 05:39 *Q Meaningful Use (ADM) - VTE *Q VTE Criteria *Q: - Stroke *Q Stroke Criteria *Q: - AMI *Q AMI Criteria *Q: Problem List Initiated/Reviewed/Updated: Yes Orders Last 24hrs: Medication Orders Dextrose/Sodium Chloride (Dextrose 5%-Normal Saline) 1,000 mls @ 150 mls/hr IV ASDIRECTED MARIBEL Last Admin: 10/25/17 19:30 Dose: 150 mls/hr Assessment/Plan Comment:: Assessment/Plan: Acute: Pancreatitis - Lipase is 2217 - Gallstones/Sludge vs ETOH - Carries hx/o ETOH Use () - CT scan: NS GBW edema - U/S GB: to r/o GB Stones/Sludge - Woodbine's Criteria: Incomplete with missing LDH and Trig level - Supportive Care, IV Fluids, Pain Medications and IV Abx - NPO until level improves except ice chips and sips of water - Dr. Ambrose consult in AM Gall Bladder Wall Edema - Suspect may have passed Gallstones - U/S GB to assess further Chronic: HTM Tobacco Product User - Offered Nicotine Patch; refused Plan: Admit to Med- Surg Routine AM labs IVF at 150cc/hr Continue home meds Lipid Panel and LDH in AM SW/CM for d/c planning Code Status:1
[2017-10-25] MEDS ORDERED: Docusate Sodium 100 MG Cap PO PRN (23:19)
[2017-10-25] MEDS ORDERED: Polyethylene Glycol 3350 Powder 17 GM Packet PO PRN (23:19)
[2017-10-25] MEDS ORDERED: Acetaminophen 325 MG Tab PO PRN (23:19)
[2017-10-25] MEDS ORDERED: Ondansetron 4 MG/2 ML SDV IV PRN (23:19)
[2017-10-25] MEDS ORDERED: Promethazine 12.5 MG in Sodium Chloride 0.9% 50 ML IV PRN (23:19)
[2017-10-25] MEDS ORDERED: Temazepam 15 MG Cap PO PRN (23:19)
[2017-10-25] MEDS ORDERED: HYDROmorphone 1 MG/ML Syringe IVPUSH PRN (23:19)
[2017-10-25] MEDS ORDERED: Bisacodyl 5 MG Tab PO PRN (23:19)
[2017-10-25] MEDS ORDERED: Pantoprazole 40 MG Vial IVPUSH ONE (23:19)
[2017-10-25] MEDS ORDERED: Albuterol/Ipratropium 3.0-0.5 MG/3 ML Neb Soln NEB PRN (23:19)
[2017-10-25] MEDS ORDERED: LORazepam 2 MG/ML SDV IV PRN (23:19)
[2017-10-25] MEDS ORDERED: Metoprolol Tartrate 5 MG/5 ML SDV IVPUSH PRN (23:37)
[2017-10-25] MEDS ORDERED: LORazepam 2 MG/ML SDV IVPUSH PRN (23:37)
[2017-10-25] MEDS ORDERED: hydrALAZINE 20 MG/ML SDV IVPUSH PRN (23:37)
[2017-10-26] MEDS ORDERED: Meperidine PF 75 MG/ML Syringe IV PRN (00:10)
[2017-10-26] MEDS: Meperidine PF 50 MG/ML Syringe IV PRN ×6 (00:36→20:54)
[2017-10-26] MEDS: Dextrose 5%-0.9% NaCl 1,000 ML IV SCH ×4 (02:27→23:14)
[2017-10-26] MEDS: HYDROmorphone 0.5 MG/0.5 ML SYRINGE IVPUSH PRN ×4 (02:48→20:39)
--- NOTE | 2017-10-26 06:45 | CR ---
Abdomen: Supine view of the abdomen was obtained. Comparison: No prior abdominal x-ray. Bowel gas pattern appears normal. No abnormal calcifications or soft tissue abnormality is seen. Bony structures are unremarkable. Impression: 1. Unremarkable supine abdominal x-ray. Diagnostic code #1
--- NOTE | 2017-10-26 06:52 | CR ---
Chest: Frontal view of the chest was obtained. Comparison: No prior chest x-ray. Incidental azygos lobe is seen. Lungs are clear with no acute parenchymal change. Heart size and mediastinum are normal. Bony structures are unremarkable. Impression: 1. Nothing acute is seen on frontal chest x-ray. Diagnostic code #1
--- NOTE | 2017-10-26 06:55 | CT ---
CT abdomen and pelvis Technique: Volumetric acquisition was obtained from above the dome of the diaphragm inferiorly through the pubic symphysis. Intravenous contrast was utilized. No oral contrast has been given. Delayed images were also obtained through the abdomen and pelvis. Findings: Small portion of the visualized lung bases show nothing acute. Liver shows no focal parenchymal abnormality. There is low density being identified within/around the gallbladder wall. No calcified gallstones are seen. Spleen appears within normal limits. Adrenal glands show no nodule. Pancreas is within normal limits. Kidneys show symmetric contrast enhancement without hydronephrosis or mass. Aorta shows no aneurysmal dilatation. No retroperitoneal adenopathy or mesenteric abnormalities are seen. Appendix is felt to be seen which appears within normal limits. No pelvic mass or adenopathy is seen. Delayed images show contrast excretion from both kidneys into the ureters and bladder. Impression: 1. Possible edema within/around the gallbladder wall of uncertain etiology. Ultrasound could be considered to further evaluate. 2. No additional abnormality is identified on CT study of the abdomen and pelvis. Diagnostic code #3 Agree with preliminary report issued by [facility] ([facility] preliminary report dictated on 10/25/17, 10:59 PM Central Time)
[2017-10-26] MEDS: Famotidine 20 MG/2 ML SDV IVPUSH SCH ×2 (08:12→20:37)
[2017-10-26] MEDS: Enoxaparin 40 MG/0.4 ML Syringe SUBCUT SCH (08:13)
--- NOTE | 2017-10-26 09:01 | PCM.PN ---
- General Info Date of Service: 10/26/17 Admission Dx/Problem (Free Text): Acute Pancreatitis Subjective Update: Follow Up Functional Status: Reports: Pain Controlled, Ambulating, Urinating. Denies: New Symptoms - Review of Systems General: Denies: Fever, Weakness, Fatigue, Malaise, Chills HEENT: Reports: No Symptoms Pulmonary: Denies: No Symptoms, Shortness of Breath, Pleuritic Chest Pain, Cough Cardiovascular: Denies: Chest Pain, Palpitations, Dyspnea on Exertion, Lightheadedness Gastrointestinal: Reports: Abdominal Pain. Denies: Decreased Appetite, Difficulty Swallowing, Nausea, Vomiting Genitourinary: Reports: No Symptoms Musculoskeletal: Reports: No Symptoms Skin: Denies: Jaundice, Pallor, Diaphoresis Neurological: Denies: Confusion, Difficulty Walking, Weakness, Gait Disturbance Psychiatric: Denies: Depression, Anxiety, Agitation, Hallucinations Systems Review Comment:: He slept okay last night. His pain is not well controlled. Dilaudid did not seem to work well with him but Demerol. His pain is not well controlled. His Lipase level is now down to 237. His lipid panel is abnormal. He has no other complaints. - Patient Data Vitals - Most Recent: Last Vital Signs Temp 37.6 C 10/26/17 08:18 Pulse 69 10/26/17 08:18 Resp 20 10/26/17 08:18 BP 139/83 10/26/17 08:18 Pulse Ox 98 10/26/17 08:18 Weight - Most Recent: 122.47 kg I&O - Last 24 Hours: Intake & Output 10/25/17 10/26/17 10/26/17 22:59 06:59 14:59 Intake Total 982 Balance 982 Lab Results Last 24 Hours: Laboratory Results - last 24 hr 10/26/17 10/26/17 Range/Units 05:39 05:39 WBC 7.18 (4.23-9.07) K/mm3 RBC 6.07 (4.63-6.08) M/mm3 Hgb 15.9 (13.7-17.5) gm/L Hct 48.6 (40.1-51.0) % MCV 80.1 (79.0-92.2) fl MCH 26.2 (25.7-32.2) pg MCHC 32.7 (32.2-35.5) g/dl RDW Std Deviation 50.6 H (35.1-43.9) fL Plt Count 236 (163-337) K/mm3 MPV 10.2 (9.4-12.3) fl Neut % (Auto) 68.4 H (34.0-67.9) % Lymph % (Auto) 12.4 L (21.8-53.1) % [place] % (Auto) 13.4 H (5.3-12.2) % Eos % (Auto) 5.4 (0.8-7.0) Baso % (Auto) 0.1 (0.1-1.2) % Neut # (Auto) 4.91 (1.78-5.38) K/mm3 Lymph # (Auto) 0.89 L (1.32-3.57) K/mm3 [place] # (Auto) 0.96 H (0.30-0.82) K/mm3 Eos # (Auto) 0.39 (0.04-0.54) K/mm3 Baso # (Auto) 0.01 (0.01-0.08) K/mm3 Manual Slide Review Normal smear Sodium 138 (136-145) mEq/L Potassium 4.6 (3.5-5.1) mEq/L Chloride 105 (98-107) mEq/L Carbon Dioxide 24 (21-32) mEq/L Anion Gap 13.6 (5-15) BUN 12 (7-18) mg/dL Creatinine 1.0 (0.7-1.3) mg/dL Est Cr Clr Drug Dosing 117.13 mL/min Estimated GFR (MDRD) > 60 (>60) mL/min BUN/Creatinine Ratio 12.0 L (14-18) Glucose 101 (74-106) mg/dL Calcium 8.2 L (8.5-10.1) mg/dL Magnesium 2.2 (1.8-2.4) mg/dl C-Reactive Protein 0.3 (<1.0) mg/dL Triglycerides 66 (<150) mg/dL Cholesterol 168 (<200) mg/dL LDL Cholesterol Direct 149 H* (<100) mg/dL HDL Cholesterol 16.0 L (40-59) mg/dL Lipase 237 (73-393) U/L Med Orders - Current: Current Medications Acetaminophen (Tylenol) 650 mg PO Q4H PRN PRN Reason: Pain (Mild 1-3)/fever Hydrocodone Bitart/Acetaminophen ([place] 325-5 Mg) 1 tab PO Q4H PRN PRN Reason: Pain (moderate 4-6) Albuterol/Ipratropium (Duoneb 3.0-0.5 Mg/3 Ml) 3 ml NEB Q4H PRN PRN Reason: Shortness Of Breath/wheezing Bisacodyl (Dulcolax) 5 mg PO DAILY PRN PRN Reason: Constipation Docusate Sodium (Colace) 100 mg PO BID PRN PRN Reason: Constipation Enoxaparin Sodium (Lovenox) 40 mg SUBCUT DAILY [facility] Last Admin: 10/26/17 08:13 Dose: Not Given Famotidine (Pepcid) 20 mg IVPUSH BID [facility] Last Admin: 10/26/17 08:12 Dose: 20 mg Hydralazine HCl (Apresoline) 20 mg IVPUSH Q4H PRN PRN Reason: Hypertension Last Admin: 10/26/17 00:01 Dose: 20 mg Hydromorphone HCl (Dilaudid) 1 mg IVPUSH Q4H PRN PRN Reason: Pain (severe 7-10) Last Admin: 10/26/17 02:48 Dose: 1 mg Dextrose/Sodium Chloride (Dextrose 5%-Normal Saline) 1,000 mls @ 150 mls/hr IV ASDIRECTED [facility] Last Admin: 10/26/17 02:27 Dose: 150 mls/hr Promethazine HCl 12.5 mg/ (Sodium Chloride) 50.5 mls @ 100 mls/hr IV Q6H PRN PRN Reason: Nausea/Vomiting Lorazepam (Ativan) 1 mg IV Q6H PRN PRN Reason: Anxiety Lorazepam (Ativan) 2 mg IVPUSH Q4H PRN PRN Reason: Seizures Magnesium Sulfate (Pharmacy To Dose - Magnesium Replacement) 0 dose .XX ASDIRECTED PRN PRN Reason: RX TO WATCH MAG LEVELS Meperidine HCl (Demerol) 100 mg IV Q4H PRN PRN Reason: PAIN Last Admin: 10/26/17 08:13 Dose: 100 mg Metoprolol Tartrate (Lopressor) 5 mg IVPUSH Q4H PRN PRN Reason: Tachycardia Ondansetron HCl (Zofran) 4 mg IV Q6H PRN PRN Reason: Nausea/Vomiting Minocycline 100 Mg 0 each PO BID [facility] Last Admin: 10/26/17 08:13 Dose: Not Given Polyethylene Glycol (Miralax) 17 gm PO DAILY PRN PRN Reason: Constipation Potassium Chloride (Pharmacy To Dose - Potassium Replacement) 0 dose .XX ASDIRECTED PRN PRN Reason: RX TO WATCH K LEVELS Senna/Docusate Sodium (Senna Plus) 1 tab PO BID PRN PRN Reason: Constipation Temazepam (Restoril) 15 mg PO BEDTIME PRN PRN Reason: Sleep Discontinued Medications Hydromorphone HCl (Dilaudid) 1 mg IVPUSH ONETIME ONE Stop: 10/25/17 19:07 Last Admin: 10/25/17 19:27 Dose: 1 mg Hydromorphone HCl (Dilaudid) 1 mg IVPUSH ONETIME ONE Stop: 10/25/17 20:44 Last Admin: 10/25/17 20:52 Dose: 1 mg Hydromorphone HCl (Dilaudid) 1 mg IVPUSH Q4H PRN PRN Reason: Pain (severe 7-10) Iopamidol (Isovue-300 (61%)) 125 ml IVPUSH ONETIME ONE Stop: 10/25/17 21:40 Last Admin: 10/25/17 21:41 Dose: 125 ml Meperidine HCl (Demerol) 50 mg IVPUSH ONETIME ONE Stop: 10/25/17 21:15 Last Admin: 10/25/17 21:21 Dose: 50 mg Meperidine HCl (Demerol) 75 mg IVPUSH ONETIME ONE Stop: 10/25/17 22:06 Last Admin: 10/25/17 22:21 Dose: 75 mg Meperidine HCl (Demerol) Confirm Administered Dose 100 mg .ROUTE .STK-MED ONE Stop: 10/25/17 22:25 Last Admin: 10/25/17 22:23 Dose: Not Given Meperidine HCl (Demerol) 100 mg IV Q4HR PRN PRN Reason: Abdominal Pain Metoclopramide HCl (Reglan) 10 mg IVPUSH ONETIME ONE Stop: 10/25/17 19:08 Last Admin: 10/25/17 19:27 Dose: 10 mg Pantoprazole Sodium (Protonix Iv) 40 mg IVPUSH ONETIME ONE Stop: 10/25/17 23:20 Last Admin: 10/26/17 00:01 Dose: 40 mg - Exam General: Alert, Oriented, Cooperative, No Acute Distress HEENT: Pupils Equal, Pupils Reactive, EOMI, Mucous Membr. Moist/[place] Neck: Supple, Trachea Midline, No JVD Lungs: Clear to Auscultation, Normal Respiratory Effort Cardiovascular: Regular Rate, Regular Rhythm GI/Abdominal Exam: Normal Bowel Sounds, Soft, No Organomegaly, No Distention, No Abnormal Bruit, Tender. No: Guarding, Rigid, Rebound, Abnormal Bowel Sounds , Hernia (Male) Exam: Deferred Back Exam: Normal Inspection, Decreased Range of Motion Extremities: Normal Inspection, Normal Range of Motion, Non-Tender, No Pedal Edema, Normal Capillary Refill Peripheral Pulses: 2+: Dorsalis Pedis (L), Dorsalis Pedis (R) Skin: Warm, Dry, Intact Neurological: No New Focal Deficit Psy/Mental Status: Alert, Normal Affect, Normal Mood - Problem List Review Problem List Initiated/Reviewed/Updated: Yes - My Orders Last 24 Hours: My Active Orders 10/25/17 23:19 Height and Weight [RC] 04 Oxygen Therapy [RC] PRN Up ad Leyla [RC] ASDIRECTED VTE/DVT Education [RC] DAILY Vital Signs [RC] 09,15,21,03 Acetaminophen [Tylenol] 650 mg PO Q4H PRN Acetaminophen/HYDROcodone [[place] 325-5 MG] 1 tab PO Q4H PRN Albuterol/Ipratropium [DuoNeb 3.0-0.5 MG/3 ML] 3 ml NEB Q4H PRN Bisacodyl [Dulcolax] 5 mg PO DAILY PRN Docusate Sodium [Colace] 100 mg PO BID PRN Docusate Sodium/Sennosides [Senna Plus] 1 tab PO BID PRN LORazepam [Ativan] 1 mg IV Q6H PRN Ondansetron [Zofran] 4 mg IV Q6H PRN Polyethylene Glycol 3350 [MiraLAX] 17 gm PO DAILY PRN Promethazine [Phenergan] 12.5 mg Sodium Chloride 0.9% [Normal Saline] 50 ml IV Q6H Temazepam [Restoril] 15 mg PO BEDTIME PRN Resuscitation Status Routine 10/25/17 23:20 Intake and Output [RC] 04,16 10/25/17 23:25 RT Aerosol Therapy [RC] .PRN 10/25/17 23:26 Consult to Political Science Research Assistant [CONS] Routine 10/25/17 23:30 DRUG SCREEN, URINE REFLEX [URCHEM] Stat 10/25/17 23:34 Consult to Physician [CONS] Routine 10/25/17 23:37 Notify Provider Consults [RC] ASDIRECTED URINALYSIS W/MICROSCOPIC [UA W/MICROSCOPIC] [URIN] Routine LORazepam [Ativan] 2 mg IVPUSH Q4H PRN Metoprolol Tartrate [Lopressor] 5 mg IVPUSH Q4H PRN hydrALAZINE [Apresoline] 20 mg IVPUSH Q4H PRN 10/25/17 23:45 Magnesium Rep Pharmacy to Dose [Pharmacy to Dose - Magnesium Replacement] 0 dose .XX ASDIRECTED PRN Potassium Rep Pharmacy to Dose [Pharmacy to Dose - Potassium Replacement] 0 dose .XX ASDIRECTED PRN 10/25/17 Dinner Nothing per Oral Now Diet [DIET] 10/26/17 00:45 Meperidine [Demerol] 100 mg IV Q4H PRN 10/26/17 02:46 HYDROmorphone [Dilaudid] 1 mg IVPUSH Q4H PRN 10/26/17 05:39 LDH, ISOENZYMES [REF] Stat 10/26/17 07:00 Abdomen Ltd [US] Routine 10/26/17 09:00 Enoxaparin [Lovenox] 40 mg SUBCUT DAILY Famotidine [Pepcid] 20 mg IVPUSH BID Patient's Own Medication [Ptom] 0 each PO BID 10/27/17 05:11 BASIC METABOLIC PANEL,BMP [CHEM] AM C-REACTIVE PROTEIN [CHEM] AM CBC WITH AUTO DIFF [HEME] AM LIPASE [CHEM] Routine MAGNESIUM [CHEM] AM 10/28/17 05:11 BASIC METABOLIC PANEL,BMP [CHEM] AM C-REACTIVE PROTEIN [CHEM] AM MAGNESIUM [CHEM] AM - Plan Plan:: Assessment/Plan: Acute: S/p Pancreatitis - Lipase is 2217--> 237 - Gallstones/Sludge vs ETOH - Carries hx/o ETOH Use ([facility] [employer]) - CT scan: NS GBW edema - U/S GB: to r/o GB Stones/Sludge-awaiting final report - [facility] Criteria: Incomplete with missing: LDH-pending and Trig level- normal - Supportive Care, IV Fluids, Pain Medications and IV Abx - NPO until level improves except ice chips and sips of water - Awaiting Dr. Ambrose input Gall Bladder Wall Edema - Suspect may have passed Gallstones - U/S GB completed-awaiting final report HLD - LDL 149 and HDL 16 - LSM no need for statin - AHA diet Chronic: HTM Tobacco Product User - Offered Nicotine Patch; refused Plan: He is otherwise clinically stable Continue current treatment Routine AM labs IVF at 150cc/hr Continue home meds Lipid Panel-abnormal SW/CM for d/c planning Code Status:1
--- NOTE | 2017-10-26 09:55 | US ---
Limited abdominal ultrasound: Multiple real-time images of the upper right abdomen were obtained. Comparison: Prior abdominal and pelvic CT exam of 10/25/17. Gallbladder wall is mildly thickened but no pericholecystic or gallbladder wall edema is seen as suggested on recent CT exam. No gallstones are seen. No biliary duct dilatation is seen. Liver shows no focal abnormality. Pancreas is mostly obscured from bowel gas. Inferior vena cava is patent. Portal vein shows normal hepatopedal flow. Right kidney shows no hydronephrosis or mass and has a length of 12.1 cm. Impression: 1. Gallbladder wall is slightly thickened but no gallbladder wall edema or pericholecystic fluid is seen as suggested on recent CT exam. No gallstones are seen. No biliary duct dilatation is seen. 2. Obscured pancreas. 3. No additional abnormality is seen on right upper quadrant abdominal ultrasound exam. Diagnostic code #2
--- NOTE | 2017-10-26 10:27 | PCM.CONSN ---
- General Info Date of Service: 10/26/17 - Patient Data Vitals - Most Recent: Last Vital Signs Temp 99.7 F 10/26/17 08:18 Pulse 69 10/26/17 08:18 Resp 20 10/26/17 08:18 BP 139/83 10/26/17 08:18 Pulse Ox 98 10/26/17 08:18 Weight - Most Recent: 122.47 kg I&O - Last 24 Hours: Intake & Output 10/25/17 10/26/17 10/26/17 23:59 07:59 15:59 Intake Total 982 Balance 982 Lab Results Last 24 Hours: Laboratory Results - last 24 hr 10/26/17 10/26/17 Range/Units 05:39 05:39 WBC 7.18 (4.23-9.07) K/mm3 RBC 6.07 (4.63-6.08) M/mm3 Hgb 15.9 (13.7-17.5) gm/L Hct 48.6 (40.1-51.0) % MCV 80.1 (79.0-92.2) fl MCH 26.2 (25.7-32.2) pg MCHC 32.7 (32.2-35.5) g/dl RDW Std Deviation 50.6 H (35.1-43.9) fL Plt Count 236 (163-337) K/mm3 MPV 10.2 (9.4-12.3) fl Neut % (Auto) 68.4 H (34.0-67.9) % Lymph % (Auto) 12.4 L (21.8-53.1) % [place] % (Auto) 13.4 H (5.3-12.2) % Eos % (Auto) 5.4 (0.8-7.0) Baso % (Auto) 0.1 (0.1-1.2) % Neut # (Auto) 4.91 (1.78-5.38) K/mm3 Lymph # (Auto) 0.89 L (1.32-3.57) K/mm3 [place] # (Auto) 0.96 H (0.30-0.82) K/mm3 Eos # (Auto) 0.39 (0.04-0.54) K/mm3 Baso # (Auto) 0.01 (0.01-0.08) K/mm3 Manual Slide Review Normal smear Sodium 138 (136-145) mEq/L Potassium 4.6 (3.5-5.1) mEq/L Chloride 105 (98-107) mEq/L Carbon Dioxide 24 (21-32) mEq/L Anion Gap 13.6 (5-15) BUN 12 (7-18) mg/dL Creatinine 1.0 (0.7-1.3) mg/dL Est Cr Clr Drug Dosing 117.13 mL/min Estimated GFR (MDRD) > 60 (>60) mL/min BUN/Creatinine Ratio 12.0 L (14-18) Glucose 101 (74-106) mg/dL Calcium 8.2 L (8.5-10.1) mg/dL Magnesium 2.2 (1.8-2.4) mg/dl C-Reactive Protein 0.3 (<1.0) mg/dL Triglycerides 66 (<150) mg/dL Cholesterol 168 (<200) mg/dL LDL Cholesterol Direct 149 H* (<100) mg/dL HDL Cholesterol 16.0 L (40-59) mg/dL Lipase 237 (73-393) U/L Med Orders - Current: Current Medications Acetaminophen (Tylenol) 650 mg PO Q4H PRN PRN Reason: Pain (Mild 1-3)/fever Hydrocodone Bitart/Acetaminophen ([place] 325-5 Mg) 1 tab PO Q4H PRN PRN Reason: Pain (moderate 4-6) Albuterol/Ipratropium (Duoneb 3.0-0.5 Mg/3 Ml) 3 ml NEB Q4H PRN PRN Reason: Shortness Of Breath/wheezing Bisacodyl (Dulcolax) 5 mg PO DAILY PRN PRN Reason: Constipation Docusate Sodium (Colace) 100 mg PO BID PRN PRN Reason: Constipation Enoxaparin Sodium (Lovenox) 40 mg SUBCUT DAILY [facility] Last Admin: 10/26/17 08:13 Dose: Not Given Famotidine (Pepcid) 20 mg IVPUSH BID [facility] Last Admin: 10/26/17 08:12 Dose: 20 mg Hydralazine HCl (Apresoline) 20 mg IVPUSH Q4H PRN PRN Reason: Hypertension Last Admin: 10/26/17 00:01 Dose: 20 mg Hydromorphone HCl (Dilaudid) 2 mg IVPUSH Q6H PRN PRN Reason: Pain (severe 7-10) Dextrose/Sodium Chloride (Dextrose 5%-Normal Saline) 1,000 mls @ 150 mls/hr IV ASDIRECTED [facility] Last Admin: 10/26/17 09:19 Dose: 150 mls/hr Promethazine HCl 12.5 mg/ (Sodium Chloride) 50.5 mls @ 100 mls/hr IV Q6H PRN PRN Reason: Nausea/Vomiting Lorazepam (Ativan) 1 mg IV Q6H PRN PRN Reason: Anxiety Lorazepam (Ativan) 2 mg IVPUSH Q4H PRN PRN Reason: Seizures Magnesium Sulfate (Pharmacy To Dose - Magnesium Replacement) 0 dose .XX ASDIRECTED PRN PRN Reason: RX TO WATCH MAG LEVELS Meperidine HCl (Demerol) 100 mg IV Q4H PRN PRN Reason: PAIN Last Admin: 10/26/17 08:13 Dose: 100 mg Metoprolol Tartrate (Lopressor) 5 mg IVPUSH Q4H PRN PRN Reason: Tachycardia Ondansetron HCl (Zofran) 4 mg IV Q6H PRN PRN Reason: Nausea/Vomiting Minocycline 100 Mg 0 each PO BID [facility] Last Admin: 10/26/17 08:13 Dose: Not Given Polyethylene Glycol (Miralax) 17 gm PO DAILY PRN PRN Reason: Constipation Potassium Chloride (Pharmacy To Dose - Potassium Replacement) 0 dose .XX ASDIRECTED PRN PRN Reason: RX TO WATCH K LEVELS Senna/Docusate Sodium (Senna Plus) 1 tab PO BID PRN PRN Reason: Constipation Temazepam (Restoril) 15 mg PO BEDTIME PRN PRN Reason: Sleep Discontinued Medications Hydromorphone HCl (Dilaudid) 1 mg IVPUSH ONETIME ONE Stop: 10/25/17 19:07 Last Admin: 10/25/17 19:27 Dose: 1 mg Hydromorphone HCl (Dilaudid) 1 mg IVPUSH ONETIME ONE Stop: 10/25/17 20:44 Last Admin: 10/25/17 20:52 Dose: 1 mg Hydromorphone HCl (Dilaudid) 1 mg IVPUSH Q4H PRN PRN Reason: Pain (severe 7-10) Hydromorphone HCl (Dilaudid) 1 mg IVPUSH Q4H PRN PRN Reason: Pain (severe 7-10) Last Admin: 10/26/17 09:36 Dose: 1 mg Iopamidol (Isovue-300 (61%)) 125 ml IVPUSH ONETIME ONE Stop: 10/25/17 21:40 Last Admin: 10/25/17 21:41 Dose: 125 ml Meperidine HCl (Demerol) 50 mg IVPUSH ONETIME ONE Stop: 10/25/17 21:15 Last Admin: 10/25/17 21:21 Dose: 50 mg Meperidine HCl (Demerol) 75 mg IVPUSH ONETIME ONE Stop: 10/25/17 22:06 Last Admin: 10/25/17 22:21 Dose: 75 mg Meperidine HCl (Demerol) Confirm Administered Dose 100 mg .ROUTE .STK-MED ONE Stop: 10/25/17 22:25 Last Admin: 10/25/17 22:23 Dose: Not Given Meperidine HCl (Demerol) 100 mg IV Q4HR PRN PRN Reason: Abdominal Pain Metoclopramide HCl (Reglan) 10 mg IVPUSH ONETIME ONE Stop: 10/25/17 19:08 Last Admin: 10/25/17 19:27 Dose: 10 mg Pantoprazole Sodium (Protonix Iv) 40 mg IVPUSH ONETIME ONE Stop: 10/25/17 23:20 Last Admin: 10/26/17 00:01 Dose: 40 mg Consult PN Assessment/Plan Procedures: Procedures C-REACTIVE PROTEIN (07/04/17) COMPLETE CBC W/AUTO DIFF WBC (07/04/17) COMPREHEN METABOLIC PANEL (07/04/17) EMERGENCY DEPT VISIT (07/04/17) EMERGENCY DEPT VISIT (04/28/17) EMERGENCY DEPT VISIT (04/27/17) IMMUNIZATION ADMIN (04/26/17) ROUTINE VENIPUNCTURE (07/04/17) RPR S/N/AX/GEN/TRNK2.6-7.5CM (04/26/17) TDAP VACCINE 7 YRS/> IM (04/26/17) THER/PROPH/DIAG IV INF INIT (07/04/17) TX/PRO/DX INJ NEW DRUG ADDON (04/26/17) Problem List Initiated/Reviewed/Updated: Yes Plan: surgical consult dictated FRITZ
[2017-10-27] MEDS: Meperidine PF 50 MG/ML Syringe IV PRN ×2 (01:20→08:01)
[2017-10-27] MEDS: Acetaminophen/HYDROcodone 325-5 MG Tab PO PRN ×4 (01:21→16:12)
[2017-10-27] MEDS: HYDROmorphone 0.5 MG/0.5 ML SYRINGE IVPUSH PRN ×2 (05:00→11:47)
[2017-10-27] MEDS: Dextrose 5%-0.9% NaCl 1,000 ML IV SCH (06:24)
[2017-10-27] MEDS: Enoxaparin 40 MG/0.4 ML Syringe SUBCUT SCH (08:03)
[2017-10-27] MEDS: Famotidine 20 MG/2 ML SDV IVPUSH SCH (08:03)
--- NOTE | 2017-10-27 08:18 | CONS ---
CONSULTING PHYSICIAN: Parish Ambrose MD DATE OF CONSULTATION: 10/26/2017 HISTORY OF PRESENT ILLNESS: This is a 27-year-old who came in with abdominal pain yesterday, 10/25/2017. Pain was in the right upper quadrant, associated with some nausea, some shortness of breath, aggravated by eating, taking a deep breath. He was seen in the emergency department, and his ALT and AST were elevated, and lipase was elevated at 20,000. CT scan was negative other than thickening around the gallbladder, and ultrasound of the gallbladder did not show any gallstones. The patient was admitted with IV pain medication for pancreatitis. The patient states that his family members other than his father has not had any gallstones, but his father had some problem, he was certain. As far as alcohol is concerned, the patient did have some 4 beers on Tuesday, but states he generally does not drink heavy. Did have a problem with it about 5 years ago. Did take some [facility] medication for weight lifting. Does not know what it is. PAST SURGICAL HISTORY: That of hernia repair and oral surgery. FAMILY HISTORY: None other than what was stated above. REVIEW OF SYSTEMS: Consists of abdominal pain, nausea, and vomiting, which is improving. No chest pain, shortness of breath, cough, hoarseness, wheezing, fainting, weakness, numbness, or convulsions. SOCIAL HISTORY: As stated above. ALLERGIES: No known allergies. MEDICATIONS: Per medication reconciliation form. Consists of minocycline and propranolol. PHYSICAL EXAMINATION: GENERAL: Reveals a blood pressure of 139/83, temperature 99.3, pulse 69. EYES: Sclerae white. Extraocular muscle motion normal. ORAL CAVITY: Healthy mucous membrane with mouth and tongue. NECK: Supple. No nodes. No thyromegaly. Trachea midline. LUNGS: Clear. No rales, rhonchi, fremitus, dullness. HEART: Heart tones regular rate. No S3, S4, jugular venous distention, or murmurs. ABDOMEN: Tenderness in the right upper quadrant, point tenderness. EXTREMITIES: Upper and lower extremities, no angulation deformities. NEUROLOGIC: No sensorineural deficit. Cranial nerves III through XII intact. SKIN: Warm and dry. PSYCHIATRIC: Exam is normal. ASSESSMENT: Pancreatitis, improving, possible due to his gallbladder. PLAN: Would recommend follow up in the clinic for further discussion of this problem. Discussed this with the patient. MMODAL /[id number]
[2017-10-27] MEDS ORDERED: HYDROmorphone 0.5 MG/0.5 ML SYRINGE IVPUSH PRN (11:45)
[2017-10-27] MEDS ORDERED: HYDROmorphone 0.5 MG/0.5 ML SYRINGE IVPUSH ONE (14:28)
--- NOTE | 2017-10-27 14:57 | PCM.PN ---
- General Info Date of Service: 10/27/17 Admission Dx/Problem (Free Text): Acute Pancreatitis Subjective Update: In to see Thor. He is doing ok. Still complaining of 5/10 RUQ adominal pain and very mild LUQ abdominal pain. He also has a mild headache. He is due for pain meds soon. Nursing is working on placing a new IV as his current one is giving him pain. He reports he slept ok. His diet was advanced and he tolerated this. We discussed his need to follow-up with Dr. Ambrose for gallbladder. He voiced understanding. He has no concerns. No nursing concerns. Functional Status: Reports: Pain Controlled (paient would like pain meds prior to bedtime. ), Tolerating Diet, Ambulating, Urinating. Denies: New Symptoms - Review of Systems General: Reports: No Symptoms. Denies: Fever, Weakness, Fatigue, Malaise HEENT: Reports: No Symptoms Pulmonary: Reports: No Symptoms. Denies: Shortness of Breath, Cough, Sputum Cardiovascular: Reports: No Symptoms. Denies: Chest Pain, Palpitations, Dyspnea on Exertion, Lightheadedness Gastrointestinal: Reports: Abdominal Pain (RUQ>>LUQ), Decreased Appetite. Denies: Constipation, Diarrhea, Nausea, Vomiting Genitourinary: Reports: No Symptoms Musculoskeletal: Reports: No Symptoms Skin: Reports: No Symptoms Neurological: Reports: Headache (mild ) Psychiatric: Reports: No Symptoms - Patient Data Vitals - Most Recent: Last Vital Signs Temp 98.4 F 10/27/17 13:10 Pulse 67 10/27/17 13:10 Resp 16 10/27/17 13:10 BP 154/94 H 10/27/17 13:10 Pulse Ox 96 10/27/17 13:10 Weight - Most Recent: 276 lb 4.8 oz I&O - Last 24 Hours: Intake & Output 10/26/17 10/27/17 10/27/17 22:59 06:59 14:59 Intake Total 2312 2415 180 Output Total 550 Balance 1762 2415 180 Lab Results Last 24 Hours: Laboratory Results - last 24 hr 10/27/17 10/27/17 Range/Units 07:05 07:05 WBC 6.71 (4.23-9.07) K/mm3 RBC 5.75 (4.63-6.08) M/mm3 Hgb 15.2 (13.7-17.5) gm/L Hct 46.8 (40.1-51.0) % MCV 81.4 (79.0-92.2) fl MCH 26.4 (25.7-32.2) pg MCHC 32.5 (32.2-35.5) g/dl RDW Std Deviation 49.7 H (35.1-43.9) fL Plt Count 209 (163-337) K/mm3 MPV 9.5 (9.4-12.3) fl Neut % (Auto) 76.8 H (34.0-67.9) % Lymph % (Auto) 10.9 L (21.8-53.1) % [place] % (Auto) 7.9 (5.3-12.2) % Eos % (Auto) 4.2 (0.8-7.0) Baso % (Auto) 0.1 (0.1-1.2) % Neut # (Auto) 5.15 (1.78-5.38) K/mm3 Lymph # (Auto) 0.73 L (1.32-3.57) K/mm3 [place] # (Auto) 0.53 (0.30-0.82) K/mm3 Eos # (Auto) 0.28 (0.04-0.54) K/mm3 Baso # (Auto) 0.01 (0.01-0.08) K/mm3 Sodium 136 (136-145) mEq/L Potassium 4.2 (3.5-5.1) mEq/L Chloride 102 (98-107) mEq/L Carbon Dioxide 27 (21-32) mEq/L Anion Gap 11.2 (5-15) BUN 11 (7-18) mg/dL Creatinine 1.1 (0.7-1.3) mg/dL Est Cr Clr Drug Dosing 106.48 mL/min Estimated GFR (MDRD) > 60 (>60) mL/min BUN/Creatinine Ratio 10.0 L (14-18) Glucose 83 (74-106) mg/dL Calcium 8.1 L (8.5-10.1) mg/dL Magnesium 2.0 (1.8-2.4) mg/dl C-Reactive Protein 0.5 (<1.0) mg/dL Lipase 497 H (73-393) U/L Med Orders - Current: Current Medications Acetaminophen (Tylenol) 650 mg PO Q4H PRN PRN Reason: Pain (Mild 1-3)/fever Hydrocodone Bitart/Acetaminophen ([place] 325-5 Mg) 1 tab PO Q4H PRN PRN Reason: Pain (moderate 4-6) Last Admin: 10/27/17 12:36 Dose: 1 tab Albuterol/Ipratropium (Duoneb 3.0-0.5 Mg/3 Ml) 3 ml NEB Q4H PRN PRN Reason: Shortness Of Breath/wheezing Bisacodyl (Dulcolax) 5 mg PO DAILY PRN PRN Reason: Constipation Docusate Sodium (Colace) 100 mg PO BID PRN PRN Reason: Constipation Enoxaparin Sodium (Lovenox) 40 mg SUBCUT DAILY [facility] Last Admin: 10/27/17 08:03 Dose: Not Given Famotidine (Pepcid) 20 mg PO BID [facility] Hydralazine HCl (Apresoline) 20 mg IVPUSH Q4H PRN PRN Reason: Hypertension Last Admin: 10/26/17 00:01 Dose: 20 mg Hydromorphone HCl (Dilaudid) 2 mg IVPUSH Q12H PRN PRN Reason: Pain (severe 7-10) Promethazine HCl 12.5 mg/ (Sodium Chloride) 50.5 mls @ 100 mls/hr IV Q6H PRN PRN Reason: Nausea/Vomiting Lorazepam (Ativan) 1 mg IV Q6H PRN PRN Reason: Anxiety Lorazepam (Ativan) 2 mg IVPUSH Q4H PRN PRN Reason: Seizures Metoprolol Tartrate (Lopressor) 5 mg IVPUSH Q4H PRN PRN Reason: Tachycardia Ondansetron HCl (Zofran) 4 mg IV Q6H PRN PRN Reason: Nausea/Vomiting Minocycline 100 Mg 0 each PO BID [facility] Last Admin: 10/27/17 08:04 Dose: Not Given Polyethylene Glycol (Miralax) 17 gm PO DAILY PRN PRN Reason: Constipation Senna/Docusate Sodium (Senna Plus) 1 tab PO BID PRN PRN Reason: Constipation Temazepam (Restoril) 15 mg PO BEDTIME PRN PRN Reason: Sleep Last Admin: 10/26/17 20:41 Dose: 15 mg Discontinued Medications Famotidine (Pepcid) 20 mg IVPUSH BID [facility] Last Admin: 10/27/17 08:03 Dose: 20 mg Hydromorphone HCl (Dilaudid) 1 mg IVPUSH ONETIME ONE Stop: 10/25/17 19:07 Last Admin: 10/25/17 19:27 Dose: 1 mg Hydromorphone HCl (Dilaudid) 1 mg IVPUSH ONETIME ONE Stop: 10/25/17 20:44 Last Admin: 10/25/17 20:52 Dose: 1 mg Hydromorphone HCl (Dilaudid) 1 mg IVPUSH Q4H PRN PRN Reason: Pain (severe 7-10) Hydromorphone HCl (Dilaudid) 1 mg IVPUSH Q4H PRN PRN Reason: Pain (severe 7-10) Last Admin: 10/26/17 09:36 Dose: 1 mg Hydromorphone HCl (Dilaudid) 2 mg IVPUSH Q6H PRN PRN Reason: Pain (severe 7-10) Last Admin: 10/27/17 11:47 Dose: 2 mg Hydromorphone HCl (Dilaudid) 0.5 mg IVPUSH ONETIME ONE Stop: 10/27/17 14:29 Last Admin: 10/27/17 14:40 Dose: 0.5 mg Dextrose/Sodium Chloride (Dextrose 5%-Normal Saline) 1,000 mls @ 150 mls/hr IV ASDIRECTED [facility] Last Admin: 10/27/17 06:24 Dose: 150 mls/hr Iopamidol (Isovue-300 (61%)) 125 ml IVPUSH ONETIME ONE Stop: 10/25/17 21:40 Last Admin: 10/25/17 21:41 Dose: 125 ml Magnesium Sulfate (Pharmacy To Dose - Magnesium Replacement) 0 dose .XX ASDIRECTED PRN PRN Reason: RX TO WATCH MAG LEVELS Meperidine HCl (Demerol) 50 mg IVPUSH ONETIME ONE Stop: 10/25/17 21:15 Last Admin: 10/25/17 21:21 Dose: 50 mg Meperidine HCl (Demerol) 75 mg IVPUSH ONETIME ONE Stop: 10/25/17 22:06 Last Admin: 10/25/17 22:21 Dose: 75 mg Meperidine HCl (Demerol) Confirm Administered Dose 100 mg .ROUTE .STK-MED ONE Stop: 10/25/17 22:25 Last Admin: 10/25/17 22:23 Dose: Not Given Meperidine HCl (Demerol) 100 mg IV Q4HR PRN PRN Reason: Abdominal Pain Meperidine HCl (Demerol) 100 mg IV Q4H PRN PRN Reason: PAIN Last Admin: 10/27/17 08:01 Dose: 100 mg Metoclopramide HCl (Reglan) 10 mg IVPUSH ONETIME ONE Stop: 10/25/17 19:08 Last Admin: 10/25/17 19:27 Dose: 10 mg Pantoprazole Sodium (Protonix Iv) 40 mg IVPUSH ONETIME ONE Stop: 10/25/17 23:20 Last Admin: 10/26/17 00:01 Dose: 40 mg Potassium Chloride (Pharmacy To Dose - Potassium Replacement) 0 dose .XX ASDIRECTED PRN PRN Reason: RX TO WATCH K LEVELS - Exam Quality Assessment: DVT Prophylaxis General: Alert, Oriented, Cooperative, No Acute Distress HEENT: Pupils Equal, Pupils Reactive, EOMI, Mucous Membr. Moist/[place] Neck: Supple, Trachea Midline, No JVD Lungs: Clear to Auscultation, Normal Respiratory Effort Cardiovascular: Regular Rate, Regular Rhythm GI/Abdominal Exam: Normal Bowel Sounds, Soft, No Organomegaly, No Distention, No Abnormal Bruit, No Mass, Pelvis Stable, Tender (RUQ>>LUQ) (Male) Exam: Deferred Back Exam: Normal Inspection, Full Range of Motion Extremities: Normal Inspection, Normal Range of Motion, Non-Tender, No Pedal Edema, Normal Capillary Refill Peripheral Pulses: 2+: Radial (L), Radial (R), Posterior Tibial (L), Posterior Tibial (R), Dorsalis Pedis (L), Dorsalis Pedis (R) Skin: Warm, Dry, Intact Neurological: No New Focal Deficit Psy/Mental Status: Alert, Normal Affect, Normal Mood - Problem List & Annotations (1) HLD (hyperlipidemia) SNOMED Code(s): 03777073 Code(s): E78.5 - HYPERLIPIDEMIA, UNSPECIFIED Status: Acute Current Visit : Yes Qualifiers: Hyperlipidemia type: unspecified Qualified Code(s): E78.5 - Hyperlipidemia , unspecified (2) Thickening of wall of gallbladder SNOMED Code(s): 089216393 Code(s): K82.8 - OTHER SPECIFIED DISEASES OF GALLBLADDER Status: Acute Priority: High Current Visit: Yes (3) Acute pancreatitis SNOMED Code(s): 332316372 Code(s): K85.90 - ACUTE PANCREATITIS WITHOUT NECROSIS OR INFECTION, UNSP Status: Acute Priority: High Current Visit: Yes Qualifiers: Pancreatitis type: unspecified pancreatitis type Acute pancreatitis complication: unspecified Qualified Code(s): K85.90 - Acute pancreatitis without necrosis or infection, unspecified (4) Tobacco use disorder SNOMED Code(s): 531992831 Code(s): F17.200 - NICOTINE DEPENDENCE, UNSPECIFIED, UNCOMPLICATED Status: Chronic Priority: Low Current Visit: Yes - Problem List Review Problem List Initiated/Reviewed/Updated: Yes - Plan Plan:: Assessment/Plan: Acute: S/p Pancreatitis - Lipase is 2217--> 237-->497 - Gallstones/Sludge vs ETOH - Carries hx/o ETOH Use () - CT scan: NS GBW edema - U/S GB: to r/o GB Stones/Sludge- gall bladder wall thickening, no stones, no duct dilation, obscured pancreas - [place] Criteria: Incomplete with missing: LDH-pending and Trig level- normal - Supportive Care, IV Fluids, Pain Medications and IV Abx - NPO until level improves except ice chips and sips of water--> advance - Dr. Ambrose suggest OP follow-up for gallbladder Gall Bladder Wall Edema - Suspect may have passed Gallstones - U/S GB: gallbladder wall thickening, no stones, no duct dilation, obscured pancreas HLD - LDL 149 and HDL 16 - LSM no need for statin - AHA diet Chronic: HTM Tobacco Product User - Offered Nicotine Patch - accepted today - 2 Year [employer] on smoking cessation prior to discharge Plan: He is otherwise clinically stable Continue current treatment Routine AM labs IVF at 150cc/hr -> stop Continue home meds Lipid Panel-abnormal SW/CM for d/c planning Will need outpatient follow-up with Dr. mAbrose Code Status:1; PCP: None - needs to establish
[2017-10-27] MEDS: Nicotine 14 MG/24 Hr Patch TRDERM SCH (15:25)
[2017-10-27] MEDS: Ketorolac 30 MG/ML SDV IVPUSH PRN (20:27)
[2017-10-27] MEDS: Famotidine 20 MG Tab PO SCH (20:32)
[2017-10-28] MEDS: Ketorolac 30 MG/ML SDV IVPUSH PRN (02:29)
[2017-10-28] MEDS: Acetaminophen/HYDROcodone 325-5 MG Tab PO PRN (03:04)
[2017-10-28 09:50] VITALS: BP 156/93
--- NOTE | 2017-10-28 10:16 | PCM.DCSUM1 ---
<Tatiana Alanis - Last Filed: 10/28/17 10:17> Discharge Summary - Hospital Course Free Text/Narrative:: This is a 27-year-old fairly healthy white male with past medical history of hypertension who comes in for evaluation of the abdominal pain associated with nausea and shortness of breath. His symptoms have been going on constantly for the past 2-1/2 days. His pain is aggravated by certain movements, eating, along with taking deep breaths. She denies any fever or chills. He denies any previous surgery except for an inguinal hernia in the past. His initial workup in emergency department shows a fairly unremarkable CBC. His chemistry is remarkable for glucose of 146, GGT of 2, AST of 46, ALT of 77, albumin 2.3, and lipase of 20 217. His TOMASA is 0. His abdomen/pelvis CT scan report reads nonspecific gallbladder wall edema. Patient is admitted for medical management of acute pancreatitis. - Discharge Data Discharge Date: 10/28/17 Discharge Disposition: Home, Self-Care 01 Condition: Good - Discharge Diagnosis/Problem(s) (1) Acute pancreatitis SNOMED Code(s): 939737170 ICD Code: K85.90 - ACUTE PANCREATITIS WITHOUT NECROSIS OR INFECTION, UNSP Status: Resolved Priority: High QualifierTitle: Pancreatitis type: biliary Acute pancreatitis complication: no infection or necrosis Qualified Code(s): K85.10 - Biliary acute pancreatitis without necrosis or infection (2) Thickening of wall of gallbladder SNOMED Code(s): 901177631 ICD Code: K82.8 - OTHER SPECIFIED DISEASES OF GALLBLADDER Status: Acute Priority: High (3) HLD (hyperlipidemia) SNOMED Code(s): 66769146 ICD Code: E78.5 - HYPERLIPIDEMIA, UNSPECIFIED Status: Chronic Priority: Medium QualifierTitle: Hyperlipidemia type: unspecified Qualified Code(s): E78.5 - Hyperlipidemia, unspecified (4) Tobacco use disorder SNOMED Code(s): 045834658 ICD Code: F17.200 - NICOTINE DEPENDENCE, UNSPECIFIED, UNCOMPLICATED Status : Chronic Priority: Low - Patient Summary/Data Operative Procedure(s) Performed: None Complications: None Consults: Consultations 10/25/17 23:26 Consult to Asphalt Paving Superintendent [CONS] Routine 10/25/17 23:34 Consult to Physician [CONS] Routine Labs Pending at D/C: None Recommended Follow-up Testing/Procedures: Patient DC instructions: [place] quit line is [phone] for assistance with smoking cessation Follow up with Dr. Ambrose as outpatient within one week of discharge Establish care with Primary Care Provider within one week of discharge Low fat diet, avoid greasy, fried, fatty foods Exercise 150 minutes per week Weight loss will be helpful Planned Operative Procedure(s) after DC: Recommend cholecystectomy--- will have consult with Dr. Ambrose as outpatient Hospital Course: Assessment/Plan: Acute: S/p Pancreatitis - Lipase is 2217--> 237-->497--200's on day of DC - Gallstones/Sludge vs ETOH - Carries hx/o ETOH Use () - CT scan: NS GBW edema - U/S GB: to r/o GB Stones/Sludge- gall bladder wall thickening, no stones, no duct dilation, obscured pancreas - [place] Criteria: Incomplete with missing: LDH-pending and Trig level- normal - Supportive Care, IV Fluids, Pain Medications and IV Abx - NPO until level improves except ice chips and sips of water--> advance --- > tolerating diet well on day of DC - Dr. Ambrose suggest OP follow-up for gallbladder Gall Bladder Wall Edema - Suspect may have passed Gallstones - U/S GB: gallbladder wall thickening, no stones, no duct dilation, obscured pancreas HLD - LDL 149 and HDL 16 - LSM no need for statin - AHA diet Chronic: HTM Tobacco Product User - Offered Nicotine Patch - accepted today - Straightener on smoking cessation prior to discharge ----nicotine patch at DC Plan: He is otherwise clinically stable Continue current treatment Routine AM labs IVF at 150cc/hr -> stop Continue home meds Lipid Panel-abnormal SW/CM for d/c planning Will need outpatient follow-up with Dr. Ambrose Code Status:1; PCP: None - needs to establish - Patient Instructions Diet: Heart Healthy Diet, Drink 8-10+ Glasses/Day, No Alcoholic Beverages Activity: As Tolerated Showering/Bathing: May Shower Notify Provider of: Fever, Increased Pain, Nausea and/or Vomiting - Discharge Plan Prescriptions/Med Rec: Nicotine [NTS] 1 each TD DAILY #30 patch.td24 Home Medications: Home Meds Minocycline [Minocin] 100 mg PO BID 10/25/17 [History] Propranolol [Inderal LA] 60 mg PO DAILY 10/25/17 [History] Acetaminophen [Tylenol] 650 mg PO Q4H PRN tablet 10/28/17 [Rx] Nicotine [NTS] 1 each TD DAILY #30 patch.td24 10/28/17 [Rx] Patient Handouts: Smoking Hazards, Acute Pancreatitis, Khat-fo-[id number], Bupropion sustained-release tablets (smoking cessation), Low-Fat Diet for Pancreatitis or Gallbladder Conditions, What You Need to Know About Smokeless Tobacco Use, Tobacco Use Disorder, Steps to Quit Smoking Referrals: Parish Ambrose MD [Physician] - 11/03/17 1:15 pm PCP,None [Primary Care Provider] - - Discharge Summary/Plan Comment DC Time >30 min.: Yes (45 min) - General Info Date of Service: 10/28/17 Admission Dx/Problem (Free Text: Acute Pancreatitis with GB wall thickening/GB disease Patient is eating, tolerating meals. Is anxious for DC home today. Functional Status: Reports: Pain Controlled, Tolerating Diet, Ambulating, Urinating. Denies: New Symptoms - Review of Systems General: Reports: No Symptoms HEENT: Reports: No Symptoms Pulmonary: Reports: No Symptoms Cardiovascular: Reports: No Symptoms Gastrointestinal: Reports: No Symptoms. Denies: Abdominal Pain, Diarrhea, Nausea, Vomiting Genitourinary: Reports: No Symptoms Musculoskeletal: Reports: No Symptoms Neurological: Reports: No Symptoms Psychiatric: Reports: No Symptoms - Patient Data Vitals - Most Recent: Last Vital Signs Temp 98.8 F 10/28/17 08:57 Pulse 71 10/28/17 08:57 Resp 18 10/28/17 08:57 BP 156/93 H 10/28/17 08:57 Pulse Ox 100 10/28/17 08:57 Weight - Most Recent: 122.606 kg I&O - Last 24 hours: Intake & Output 10/27/17 10/28/17 10/28/17 22:59 06:59 14:59 Intake Total 2508 400 Balance 2508 400 Lab Results - Last 24 hrs: Laboratory Results - last 24 hr 10/28/17 Range/Units 06:00 Sodium 138 (136-145) mEq/L Potassium 4.9 (3.5-5.1) mEq/L Chloride 104 (98-107) mEq/L Carbon Dioxide 28 (21-32) mEq/L Anion Gap 10.9 (5-15) BUN 11 (7-18) mg/dL Creatinine 1.1 (0.7-1.3) mg/dL Est Cr Clr Drug Dosing 106.48 mL/min Estimated GFR (MDRD) > 60 (>60) mL/min BUN/Creatinine Ratio 10.0 L (14-18) Glucose 76 (74-106) mg/dL Calcium 8.6 (8.5-10.1) mg/dL Magnesium 2.2 (1.8-2.4) mg/dl C-Reactive Protein 3.2 H* (<1.0) mg/dL Lipase 221 (73-393) U/L Med Orders - Current: Current Medications Acetaminophen (Tylenol) 650 mg PO Q4H PRN PRN Reason: Pain (Mild 1-3)/fever Hydrocodone Bitart/Acetaminophen ([place] 325-5 Mg) 1 tab PO Q4H PRN PRN Reason: Pain (moderate 4-6) Last Admin: 10/28/17 03:04 Dose: 1 tab Albuterol/Ipratropium (Duoneb 3.0-0.5 Mg/3 Ml) 3 ml NEB Q4H PRN PRN Reason: Shortness Of Breath/wheezing Bisacodyl (Dulcolax) 5 mg PO DAILY PRN PRN Reason: Constipation Docusate Sodium (Colace) 100 mg PO BID PRN PRN Reason: Constipation Enoxaparin Sodium (Lovenox) 40 mg SUBCUT DAILY [facility] Last Admin: 10/27/17 08:03 Dose: Not Given Famotidine (Pepcid) 20 mg PO BID [facility] Last Admin: 10/27/17 20:32 Dose: 20 mg Hydralazine HCl (Apresoline) 20 mg IVPUSH Q4H PRN PRN Reason: Hypertension Last Admin: 10/26/17 00:01 Dose: 20 mg Promethazine HCl 12.5 mg/ (Sodium Chloride) 50.5 mls @ 100 mls/hr IV Q6H PRN PRN Reason: Nausea/Vomiting Ketorolac Tromethamine (Toradol) 30 mg IVPUSH Q6H PRN PRN Reason: Pain Last Admin: 10/28/17 02:29 Dose: 30 mg Lorazepam (Ativan) 1 mg IV Q6H PRN PRN Reason: Anxiety Lorazepam (Ativan) 2 mg IVPUSH Q4H PRN PRN Reason: Seizures Metoprolol Tartrate (Lopressor) 5 mg IVPUSH Q4H PRN PRN Reason: Tachycardia Miscellaneous Information (Remove Patch) 0 ea TRDERM DAILY [facility] Nicotine (Habitrol) 14 mg TRDERM DAILY [facility] Last Admin: 10/27/17 15:25 Dose: 14 mg Ondansetron HCl (Zofran) 4 mg IV Q6H PRN PRN Reason: Nausea/Vomiting Minocycline 100 Mg 0 each PO BID [facility] Last Admin: 10/27/17 21:00 Dose: Not Given Polyethylene Glycol (Miralax) 17 gm PO DAILY PRN PRN Reason: Constipation Senna/Docusate Sodium (Senna Plus) 1 tab PO BID PRN PRN Reason: Constipation Temazepam (Restoril) 15 mg PO BEDTIME PRN PRN Reason: Sleep Last Admin: 10/26/17 20:41 Dose: 15 mg Discontinued Medications Famotidine (Pepcid) 20 mg IVPUSH BID [facility] Last Admin: 10/27/17 08:03 Dose: 20 mg Hydromorphone HCl (Dilaudid) 1 mg IVPUSH ONETIME ONE Stop: 10/25/17 19:07 Last Admin: 10/25/17 19:27 Dose: 1 mg Hydromorphone HCl (Dilaudid) 1 mg IVPUSH ONETIME ONE Stop: 10/25/17 20:44 Last Admin: 10/25/17 20:52 Dose: 1 mg Hydromorphone HCl (Dilaudid) 1 mg IVPUSH Q4H PRN PRN Reason: Pain (severe 7-10) Hydromorphone HCl (Dilaudid) 1 mg IVPUSH Q4H PRN PRN Reason: Pain (severe 7-10) Last Admin: 10/26/17 09:36 Dose: 1 mg Hydromorphone HCl (Dilaudid) 2 mg IVPUSH Q6H PRN PRN Reason: Pain (severe 7-10) Last Admin: 10/27/17 11:47 Dose: 2 mg Hydromorphone HCl (Dilaudid) 2 mg IVPUSH Q12H PRN PRN Reason: Pain (severe 7-10) Last Admin: 10/27/17 20:30 Dose: 2 mg Hydromorphone HCl (Dilaudid) 0.5 mg IVPUSH ONETIME ONE Stop: 10/27/17 14:29 Last Admin: 10/27/17 14:40 Dose: 0.5 mg Dextrose/Sodium Chloride (Dextrose 5%-Normal Saline) 1,000 mls @ 150 mls/hr IV ASDIRECTED [facility] Last Admin: 10/27/17 06:24 Dose: 150 mls/hr Iopamidol (Isovue-300 (61%)) 125 ml IVPUSH ONETIME ONE Stop: 10/25/17 21:40 Last Admin: 10/25/17 21:41 Dose: 125 ml Magnesium Sulfate (Pharmacy To Dose - Magnesium Replacement) 0 dose .XX ASDIRECTED PRN PRN Reason: RX TO WATCH MAG LEVELS Meperidine HCl (Demerol) 50 mg IVPUSH ONETIME ONE Stop: 10/25/17 21:15 Last Admin: 10/25/17 21:21 Dose: 50 mg Meperidine HCl (Demerol) 75 mg IVPUSH ONETIME ONE Stop: 10/25/17 22:06 Last Admin: 10/25/17 22:21 Dose: 75 mg Meperidine HCl (Demerol) Confirm Administered Dose 100 mg .ROUTE .STK-MED ONE Stop: 10/25/17 22:25 Last Admin: 10/25/17 22:23 Dose: Not Given Meperidine HCl (Demerol) 100 mg IV Q4HR PRN PRN Reason: Abdominal Pain Meperidine HCl (Demerol) 100 mg IV Q4H PRN PRN Reason: PAIN Last Admin: 10/27/17 08:01 Dose: 100 mg Metoclopramide HCl (Reglan) 10 mg IVPUSH ONETIME ONE Stop: 10/25/17 19:08 Last Admin: 10/25/17 19:27 Dose: 10 mg Pantoprazole Sodium (Protonix Iv) 40 mg IVPUSH ONETIME ONE Stop: 10/25/17 23:20 Last Admin: 10/26/17 00:01 Dose: 40 mg Potassium Chloride (Pharmacy To Dose - Potassium Replacement) 0 dose .XX ASDIRECTED PRN PRN Reason: RX TO WATCH K LEVELS - Exam Quality Assessment: Reports: DVT Prophylaxis General: Reports: Alert, Oriented, Cooperative, No Acute Distress HEENT: Reports: Pupils Equal, EOMI, Mucous Membr. Moist/[place] Neck: Reports: Supple Lungs: Reports: Clear to Auscultation, Normal Respiratory Effort, Decreased Breath Sounds Cardiovascular: Reports: Regular Rate, Regular Rhythm GI/Abdominal Exam: Normal Bowel Sounds, Soft, Non-Tender (Male) Exam: Deferred Rectal (Males) Exam: Deferred Extremities: No Pedal Edema, Normal Capillary Refill Neurological: Reports: No New Focal Deficit Psy/Mental Status: Reports: Alert, Normal Affect, Normal Mood *Q Meaningful Use (DIS) - VTE *Q VTE Criteria *Q: - Stroke *Q Stroke Criteria *Q: - AMI *Q AMI Criteria *Q: <Marisel Andrea - Last Filed: 10/30/17 15:47> Discharge Summary - Hospital Course Free Text/Narrative:: Risk assessment was completed during his hospitalization. He was instructed to stop using exogenous steroids as well as stopping tobacco products. The benefits of weight loss was covered. Lastly follow up appointments were made as noted. - Patient Summary/Data Consults: Consultations 10/25/17 23:26 Consult to Asphalt Paving Superintendent [CONS] Routine 10/25/17 23:34 Consult to Physician [CONS] Routine - Patient Data Vitals - Most Recent: Last Vital Signs Temp 37.1 C 10/28/17 08:57 Pulse 71 10/28/17 08:57 Resp 18 10/28/17 08:57 BP 156/93 H 10/28/17 08:57 Pulse Ox 100 10/28/17 08:57 Med Orders - Current: Current Medications Discontinued Medications Acetaminophen (Tylenol) 650 mg PO Q4H PRN PRN Reason: Pain (Mild 1-3)/fever Hydrocodone Bitart/Acetaminophen ([place] 325-5 Mg) 1 tab PO Q4H PRN PRN Reason: Pain (moderate 4-6) Last Admin: 10/28/17 03:04 Dose: 1 tab Albuterol/Ipratropium (Duoneb 3.0-0.5 Mg/3 Ml) 3 ml NEB Q4H PRN PRN Reason: Shortness Of Breath/wheezing Bisacodyl (Dulcolax) 5 mg PO DAILY PRN PRN Reason: Constipation Docusate Sodium (Colace) 100 mg PO BID PRN PRN Reason: Constipation Enoxaparin Sodium (Lovenox) 40 mg SUBCUT DAILY [facility] Last Admin: 10/28/17 10:19 Dose: Not Given Famotidine (Pepcid) 20 mg IVPUSH BID [facility] Last Admin: 10/27/17 08:03 Dose: 20 mg Famotidine (Pepcid) 20 mg PO BID [facility] Last Admin: 10/28/17 10:19 Dose: Not Given Hydralazine HCl (Apresoline) 20 mg IVPUSH Q4H PRN PRN Reason: Hypertension Last Admin: 10/26/17 00:01 Dose: 20 mg Hydromorphone HCl (Dilaudid) 1 mg IVPUSH ONETIME ONE Stop: 10/25/17 19:07 Last Admin: 10/25/17 19:27 Dose: 1 mg Hydromorphone HCl (Dilaudid) 1 mg IVPUSH ONETIME ONE Stop: 10/25/17 20:44 Last Admin: 10/25/17 20:52 Dose: 1 mg Hydromorphone HCl (Dilaudid) 1 mg IVPUSH Q4H PRN PRN Reason: Pain (severe 7-10) Hydromorphone HCl (Dilaudid) 1 mg IVPUSH Q4H PRN PRN Reason: Pain (severe 7-10) Last Admin: 10/26/17 09:36 Dose: 1 mg Hydromorphone HCl (Dilaudid) 2 mg IVPUSH Q6H PRN PRN Reason: Pain (severe 7-10) Last Admin: 10/27/17 11:47 Dose: 2 mg Hydromorphone HCl (Dilaudid) 2 mg IVPUSH Q12H PRN PRN Reason: Pain (severe 7-10) Last Admin: 10/27/17 20:30 Dose: 2 mg Hydromorphone HCl (Dilaudid) 0.5 mg IVPUSH ONETIME ONE Stop: 10/27/17 14:29 Last Admin: 10/27/17 14:40 Dose: 0.5 mg Dextrose/Sodium Chloride (Dextrose 5%-Normal Saline) 1,000 mls @ 150 mls/hr IV ASDIRECTED [facility] Last Admin: 10/27/17 06:24 Dose: 150 mls/hr Promethazine HCl 12.5 mg/ (Sodium Chloride) 50.5 mls @ 100 mls/hr IV Q6H PRN PRN Reason: Nausea/Vomiting Iopamidol (Isovue-300 (61%)) 125 ml IVPUSH ONETIME ONE Stop: 10/25/17 21:40 Last Admin: 10/25/17 21:41 Dose: 125 ml Ketorolac Tromethamine (Toradol) 30 mg IVPUSH Q6H PRN PRN Reason: Pain Last Admin: 10/28/17 02:29 Dose: 30 mg Lorazepam (Ativan) 1 mg IV Q6H PRN PRN Reason: Anxiety Lorazepam (Ativan) 2 mg IVPUSH Q4H PRN PRN Reason: Seizures Magnesium Sulfate (Pharmacy To Dose - Magnesium Replacement) 0 dose .XX ASDIRECTED PRN PRN Reason: RX TO WATCH MAG LEVELS Meperidine HCl (Demerol) 50 mg IVPUSH ONETIME ONE Stop: 10/25/17 21:15 Last Admin: 10/25/17 21:21 Dose: 50 mg Meperidine HCl (Demerol) 75 mg IVPUSH ONETIME ONE Stop: 10/25/17 22:06 Last Admin: 10/25/17 22:21 Dose: 75 mg Meperidine HCl (Demerol) Confirm Administered Dose 100 mg .ROUTE .STK-MED ONE Stop: 10/25/17 22:25 Last Admin: 10/25/17 22:23 Dose: Not Given Meperidine HCl (Demerol) 100 mg IV Q4HR PRN PRN Reason: Abdominal Pain Meperidine HCl (Demerol) 100 mg IV Q4H PRN PRN Reason: PAIN Last Admin: 10/27/17 08:01 Dose: 100 mg Metoclopramide HCl (Reglan) 10 mg IVPUSH ONETIME ONE Stop: 10/25/17 19:08 Last Admin: 10/25/17 19:27 Dose: 10 mg Metoprolol Tartrate (Lopressor) 5 mg IVPUSH Q4H PRN PRN Reason: Tachycardia Miscellaneous Information (Remove Patch) 0 ea TRDERM DAILY [facility] Last Admin: 10/28/17 10:20 Dose: Not Given Nicotine (Habitrol) 14 mg TRDERM DAILY [facility] Last Admin: 10/28/17 10:19 Dose: Not Given Ondansetron HCl (Zofran) 4 mg IV Q6H PRN PRN Reason: Nausea/Vomiting Pantoprazole Sodium (Protonix Iv) 40 mg IVPUSH ONETIME ONE Stop: 10/25/17 23:20 Last Admin: 10/26/17 00:01 Dose: 40 mg Minocycline 100 Mg 0 each PO BID [facility] Last Admin: 10/28/17 10:20 Dose: Not Given Polyethylene Glycol (Miralax) 17 gm PO DAILY PRN PRN Reason: Constipation Potassium Chloride (Pharmacy To Dose - Potassium Replacement) 0 dose .XX ASDIRECTED PRN PRN Reason: RX TO WATCH K LEVELS Senna/Docusate Sodium (Senna Plus) 1 tab PO BID PRN PRN Reason: Constipation Temazepam (Restoril) 15 mg PO BEDTIME PRN PRN Reason: Sleep Last Admin: 10/26/17 20:41 Dose: 15 mg *Q Meaningful Use (DIS) - VTE *Q VTE Criteria *Q: - Stroke *Q Stroke Criteria *Q: - AMI *Q AMI Criteria *Q:
[2017-10-28] MEDS: Enoxaparin 40 MG/0.4 ML Syringe SUBCUT SCH (10:19)
[2017-10-28] MEDS: Nicotine 14 MG/24 Hr Patch TRDERM SCH (10:19)
[2017-10-28] MEDS: Famotidine 20 MG Tab PO SCH (10:19)
== END 2017-10-28 10:38 | disposition home or self-care (01) | DRG 440 ==
LOC: JD.ED 18:39 → JD.MS 22:05
PROVIDERS: ADMIT Internal Medicine; ATTEND Internal Medicine
DX: K85.90 Acute pancreatitis without necrosis or infection, unspecified (principal); K82.8 Other specified diseases of gallbladder; E78.5 Hyperlipidemia, unspecified; F17.200 Nicotine dependence, unspecified, uncomplicated
CPT/HCPCS: 36415; 71045; 71045-26; 74018; 74018-26; 74177; 74177-26; 76705; 76705-26; 80048; 80053; 80061; 80306; 81001; 82977; 83615; 83625; 83690; 83735; 85025; 86140; 96361; 96374; 96375; 96376; 99222; 99232; 99239; 99285; 99285-25; A9270-GY; C9113; G0480; J0360; J1170; J1885; J2175; J2765; J7042; Q9967

== ENCOUNTER 2020-01-31 23:11 | Observation (INO) | payer BC, OTHER ==
[2020-01-31] MEDS ORDERED: Sodium Chloride 0.9% 1,000 ML IV ONE (23:18)
[2020-01-31] MEDS ORDERED: Sodium Chloride 0.9% 1,000 ML ONE (23:22)
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
[2020-02-01] MEDS ORDERED: Ketorolac 30 MG/ML SDV IVPUSH STA (00:26)
[2020-02-01] MEDS: HYDROmorphone 0.5 MG/0.5 ML Syringe IVPUSH PRN ×4 (02:12→08:25)
[2020-02-01] MEDS ORDERED: Acetaminophen 325 MG Tab PO PRN (02:25)
[2020-02-01] MEDS ORDERED: Ondansetron 4 MG/2 ML SDV IVPUSH PRN (02:28)
[2020-02-01] MEDS ORDERED: Sodium Chloride 0.9% 1,000 ML IV SCH (02:30)
--- NOTE | 2020-02-01 06:44 | CT ---
Head CT Technique: Multiple axial sections of the brain were obtained. Intravenous contrast was not utilized. Comparison: Prior head CT study of 10/27/13. Findings: Soft tissue swelling is noted posteriorly within the left parietal scalp. Soft tissue swelling is also noted within the left cheek. Ventricles along with basal cisterns and sulci over the convexities are within normal limits. No abnormal parenchymal densities are seen. No evidence of intracranial hemorrhage. No midline shift or mass effect is appreciated. Bone window settings were reviewed. No acute calvarial finding is seen. No acute finding within the mastoid or paranasal sinuses are seen. Impression: 1. Soft tissue swelling within the left parietal scalp. Soft tissue swelling within the left cheek. 2. No acute intracranial abnormality is appreciated. Diagnostic code #2 I agree with preliminary report issued by [facility] ([facility] preliminary report dictated on 02/01/20, 1:04 AM Central Daylight Time) Study was dictated in MDT
--- NOTE | 2020-02-01 06:44 | CT ---
CT cervical spine Technique: Multiple axial sections were obtained from above C1 inferiorly to the mid T2 level. Reconstructed sagittal and coronal images were reviewed. Findings: Vertebral body heights and disc spaces are maintained. Vertebral bodies and posterior arches are intact. No fracture is identified. No bony central or bony neural foraminal stenosis is seen. No abnormal subluxation is appreciated. Impression: 1. Nothing acute is appreciated on CT study of the cervical spine. Diagnostic code #1 Agree with preliminary report issued by [facility] ([facility] preliminary report dictated on 02/01/20, 1:07 AM Central Daylight Time) Study was dictated in MDT
--- NOTE | 2020-02-01 06:44 | CT ---
CT thoracic spine Technique: Multiple axial sections were obtained through the thoracic spine. Reconstructed coronal and sagittal images were obtained. Findings: Vertebral body heights and disc spaces are maintained. No bony central or bony neural foraminal stenosis is seen. Slight endplate osteophytes are noted within the upper thoracic spine along the anterior right side. No acute fracture or subluxation is seen. Impression: 1. Slight endplate spurring within the upper thoracic spine. 2. Nothing acute is appreciated on CT study of the thoracic spine. Diagnostic code #2 I agree with preliminary report issued by [facility] ([facility] preliminary report dictated on 02/01/20, 1:08 AM Central Daylight Time) Study was dictated in MDT
--- NOTE | 2020-02-01 06:44 | CT ---
CT chest Technique: Multiple axial sections through the chest were obtained. Reconstructed coronal and sagittal images were obtained. Comparison: Prior chest CT study of 10/25/17 is available, no prior chest CT is available. Findings: Azygos lobe is noted. Lungs are clear with no acute parenchymal change. No pulmonary contusion or pleural effusions are seen. Mediastinum and hilar regions appear normal. Aorta shows no aneurysm. No pericardial thickening is seen. Bone window settings were reviewed which shows no acute osseous finding. Impression: 1. Nothing acute is appreciated on CT study of the chest. Diagnostic code #1 Agree with preliminary report issued by [facility] ([facility] preliminary report dictated on 02/01/20, 1:05 AM Central Daylight Time) CT abdomen and pelvis Technique: Multiple axial sections were obtained from above the dome of the diaphragm inferiorly through the pubic symphysis. Intravenous contrast was utilized. No oral contrast has been given. Delayed images were also obtained from above the kidneys inferiorly. Artifact is noted from the patient's arms. Findings: Liver shows no focal parenchymal abnormality. Spleen appears normal. Adrenal glands show no nodule. Pancreas is within normal limits. Gallbladder contains no calcified gallstones. Kidneys show symmetric contrast enhancement. Small cortical lesion is noted within the mid left lateral kidney most likely due to a small cortical cyst measuring approximately 1 cm. No additional abnormalities are seen within the kidneys. Aorta shows no aneurysm. No retroperitoneal adenopathy is seen. No pelvic mass or adenopathy is seen. Delayed images shows contrast throughout the ureters with no contrast extravasation. Contrast is noted within the bladder. Appendix is not definitely visualized. No free fluid or inflammatory change is appreciated. Bone window settings were reviewed which shows no acute osseous finding. Impression: 1. Nothing acute is appreciated on CT study of the abdomen and pelvis. Diagnostic code #1 Agree with preliminary report issued by [facility] ([facility] preliminary report dictated on 02/01/20, 1:11 AM Central Daylight Time) Study was dictated in MDT
--- NOTE | 2020-02-01 06:44 | CT ---
CT lumbar spine Technique: Multiple axial sections were obtained through the lumbar spine. Reconstructed coronal and sagittal images were obtained. Findings: Vertebral body heights and disc spaces are maintained. Unilateral spondylolytic defect is noted on the right side at L5-S1. Vertebral body heights are maintained. Disc spaces are maintained. No fracture or subluxation is seen. No bony central or bony neural foraminal stenosis is seen. Impression: 1. 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 2. Nothing acute is seen on CT study of the lumbar spine. Diagnostic code #2 I agree with preliminary report issued by [facility] ([facility] preliminary report dictated on 02/01/20, 1:14 AM Central Daylight Time) Study was dictated in MDT
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
[2020-02-01 08:40] VITALS: BP 122/74; PULSE 86
== END 2020-02-01 09:11 | disposition home or self-care (01) ==
LOC: JD.ED 23:11 → JD.MS 02-01 01:40
PROVIDERS: ADMIT Surgery; ATTEND Surgery
DX: F10.129 Alcohol abuse with intoxication, unspecified (principal); S06.0X9A Concussion with loss of consciousness of unspecified duration, initial encounter; S00.03XA Contusion of scalp, initial encounter; S20.212A Contusion of left front wall of thorax, initial encounter; S00.81XA Abrasion of other part of head, initial encounter; I10 Essential (primary) hypertension; F17.220 Nicotine dependence, chewing tobacco, uncomplicated; F17.210 Nicotine dependence, cigarettes, uncomplicated; V27.4XXA Motorcycle driver injured in collision with fixed or stationary object in traffic accident, initial encounter; Y92.410 Unspecified street and highway as the place of occurrence of the external cause; Y90.0 Blood alcohol level of less than 20 mg/100 ml
CPT/HCPCS: 36415; 70450; 71260; 72125; 72128; 72131; 74177; 80053; 80307; 85007; 85027; 85610; 85730; 96374; 99285; J1170; J1885; J7030

== ENCOUNTER 2020-02-12 19:36 | Emergency (ER) | payer BC ==
[2020-02-12 19:50] VITALS: BP 146/75; PULSE 68
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
== END 2020-02-12 20:35 | disposition home or self-care (01) ==
LOC: JD.ED 19:36
DX: S20.212A Contusion of left front wall of thorax, initial encounter (principal); R41.3 Other amnesia; I10 Essential (primary) hypertension; F17.220 Nicotine dependence, chewing tobacco, uncomplicated; E66.9 Obesity, unspecified; Z68.35 Body mass index [BMI] 35.0-35.9, adult; V89.2XXA Person injured in unspecified motor-vehicle accident, traffic, initial encounter
CPT/HCPCS: 99282; 99283

== ENCOUNTER 2020-03-30 16:25 | Emergency (ER) | payer BC ==
--- NOTE | 2020-03-30 16:50 | EDM.PDOC ---
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 times. These seem to last up to 30 minutes. Examination revealed diffuse ecchymosis to the anterior left chest with tenderness to palpation neuro exam was reported to be normal. Repeat CT at that time. He was discharged home with a referral to a neurologist in [place] all his information to follow-up with trauma surgeon. Reports that he continues to have these forgetful spells where he seems to be out of it for short periods of time usually when he to 30 seconds suggesting [place] type seizures. Boss that the patient was suffering postconcussion syndrome. Lab work performed in our ED identified lactic acidosis likely from prolonged loss of pulse and blood pressure. He suffered a generalized grand mal convulsion in the CT suite prior to having CT pulmonary gram of his chest suggesting probable anoxic encephalopathy has occurred. He received Versed 5 mg IV and later he was given Keppra 500 mg intravenously in route to [place]. The only positive finding on lab testing was methamphetamines in his urine suggesting possibility of a malignant cardiac arrhythmia as a cause of his sudden collapse and loss of blood pressure and respiratory arrest. Prognosis remains poor. His was present in the examining room and made aware of the findings and unclear etiology of his sudden collapse. Critical Care Note - Critical Care Note Total Time (mins): 100 - My Orders Last 24 Hours: My Active Orders 03/30/20 16:47 EKG Documentation Completion [RC] STAT ABG [BLOOD GAS ARTERIAL] [BG] Stat 03/30/20 16:57 RASS Sedation Scale [RC] ASDIRECTED Desired Level of Sedation (RASS) [AST] Click to Edit 03/30/20 17:00 propofoL [Diprivan 100 ML] 100 ml IV TITRATE 03/30/20 17:15 Lactated Ringers [Ringers, Lactated] 1,000 ml IV ASDIRECTED Sodium Chloride 0.9% [Normal Saline] 1,000 ml IV ASDIRECTED 03/30/20 17:17 Chest Abdomen Pelvis w Cont [CT] Stat - Assessment/Plan Last 24 Hours: My Active Orders 03/30/20 16:47 EKG Documentation Completion [RC] STAT ABG [BLOOD GAS ARTERIAL] [BG] Stat 03/30/20 16:57 RASS Sedation Scale [RC] ASDIRECTED Desired Level of Sedation (RASS) [AST] Click to Edit 03/30/20 17:00 propofoL [Diprivan 100 ML] 100 ml IV TITRATE 03/30/20 17:15 Lactated Ringers [Ringers, Lactated] 1,000 ml IV ASDIRECTED Sodium Chloride 0.9% [Normal Saline] 1,000 ml IV ASDIRECTED 03/30/20 17:17 Chest Abdomen Pelvis w Cont [CT] Stat
[2020-03-30] MEDS ORDERED: Midazolam 1 MG/ML 5 ML SDV ONE (17:00)
[2020-03-30] MEDS ORDERED: Succinylcholine 200 MG/10 ML MDV ONE (17:00)
[2020-03-30] MEDS ORDERED: propofoL 100 ML IV SCH (17:00)
[2020-03-30] MEDS ORDERED: Lactated Ringers 1,000 ML ONE (17:11)
[2020-03-30] MEDS ORDERED: Sodium Chloride 0.9% 1,000 ML ONE (17:11)
[2020-03-30 17:13] LABS: ACETAMINOPHEN 0 ug/mL (10-30)
[2020-03-30] MEDS ORDERED: Lactated Ringers 1,000 ML IV SCH (17:15)
[2020-03-30] MEDS ORDERED: Sodium Chloride 0.9% 1,000 ML IV SCH (17:15)
--- NOTE | 2020-03-30 17:16 | CT ---
Head CT Technique: Multiple axial sections through the brain were obtained. Intravenous contrast was not utilized. Comparison: Prior head CT study of 01/31/20. Findings: Ventricles along with basal cisterns and sulci over the convexities are within normal limits for the patient's age. No abnormal parenchymal densities are seen. No evidence of intracranial hemorrhage. No midline shift or mass-effect is seen. Bone window settings were reviewed. Visualized mastoid sinuses and paranasal sinuses show nothing acute. No acute calvarial abnormality is appreciated. Impression: 1. Nothing acute is appreciated on noncontrast head CT exam. Diagnostic code #1 This report was dictated in MDT
--- NOTE | 2020-03-30 17:18 | CR ---
Chest: Portable supine view of the chest was obtained. Comparison: Prior chest x-ray of 10/25/17. Heart size is within normal limits. Prominence of the left hilum is seen. Difficult to exclude superimposed pneumonia or left hilar adenopathy. Areas of atelectasis are also noted within the left perihilar region. Mild areas of increased density within the right perihilar region are seen presumably due to atelectasis. Tip of endotracheal tube lies at the lower level of the clavicles above the nevin. Nasogastric tube is seen with tip lying in the area of the stomach. Bony structures are grossly intact. Impression: 1. Increased density within left hilum either due to hilar adenopathy or superimposed pneumonia. Mild areas of atelectasis within the left perihilar region as well as right perihilar region. 2. Heart size is within normal limits. 3. Satisfactory position of nasogastric tube and endotracheal tube. Diagnostic code #9 This report was dictated in MDT
[2020-03-30] MEDS ORDERED: levETIRAcetam 500 MG in Sodium Chloride 0.9% 100 ML IV ONE (17:31)
--- NOTE | 2020-03-30 18:19 | CT ---
CT chest, abdomen and pelvis Technique: Multiple axial sections through the chest were obtained from the mid heart level inferiorly through the abdomen and pelvis. Increased density is seen within both lung bases. Findings presumably due to multifocal pneumonia. Distal thoracic aorta shows no aneurysm. No dissection is seen. Nasogastric tube is seen tip lying within the stomach. Considerable material remains within the stomach. Liver and spleen shows no focal abnormality. Abdominal aorta shows no aneurysm or dissection. Gallbladder contains no calcified gallstones. Adrenal gland on the right shows a small nodule which is nonspecific but most likely due to adrenal adenoma if there is no history of primary carcinoma. Left adrenal gland is normal. Pancreas is within normal limits. Kidneys show symmetric contrast enhancement without hydronephrosis or mass. Pancreas is normal. No retroperitoneal adenopathy or mesenteric abnormalities are seen. No pelvic mass or adenopathy is seen. Castrejon catheter is noted within the bladder. Air is noted within the bladder compatible with recent instrumentation. Appendix is felt to be visualized and is normal in size. 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 No acute osseous finding is seen. Impression: 1. Large portion of the chest not included on the study. Distal thoracic aorta shows no aneurysm. Abdominal aorta shows no aneurysm. No dissection is seen within the visualized aorta. 2. Patchy areas of increased density within both lung bases most likely related to pneumonia. This could be viral or bacterial. 3. Nasogastric tube within the stomach. Considerable material remains within the stomach. 4. Castrejon catheter within the bladder. 5. No other acute abnormality is appreciated on CT study of the lower chest, abdomen and pelvis. Diagnostic code #3 This report was dictated in MDT
== END 2020-03-30 18:00 ==
LOC: JD.ED 16:25
DX: I46.9 Cardiac arrest, cause unspecified (principal); F15.90 Other stimulant use, unspecified, uncomplicated; I10 Essential (primary) hypertension; E66.9 Obesity, unspecified; Z20.828 Contact with and (suspected) exposure to other viral communicable diseases
CPT/HCPCS: 31500; 36415; 36600; 43752; 51702; 70450; 71045; 71260; 74177; 80053; 80306; 80307; 81001; 82553; 82803; 83605; 84484; 85025; 85610; 85730; 86140; 87635; 92950; 93005; 96361; 96374; 99291; J0330; J1953; J2250; J2704; J7030; J7050; J7120; 93010; 99292; J3490; U0002

== ENCOUNTER 2020-11-23 13:50 | Emergency (ER) | payer BC, MEDICAID, OTHER ==
[2020-11-23 14:00] VITALS: PULSE 86
[2020-11-23] MEDS ORDERED: Lidocaine 1% 10 ML MDV INJECT ONE (14:04)
--- NOTE | 2020-11-23 14:56 | EDM.PDOC ---
ED HPI GENERAL MEDICAL PROBLEM - General Chief Complaint: Laceration Stated Complaint: RT HAND LAC Time Seen by Provider: 11/23/20 13:54 Source of Information: Reports: Patient History Limitations: Reports: No Limitations - History of Present Illness INITIAL COMMENTS - FREE TEXT/NARRATIVE: The patient presents with a laceration to his hand. The patient was working on his motorcycle and it started to fall and he grabbed the motorcycle and there was a pig ornament with a tusk that poked into his right hand. He is right handed and his tetanus is up to date. Onset: Sudden Duration: Minutes: Location: Reports: Upper Extremity, Right (hand) Quality: Reports: Sharp Severity: Severe Improves with: Reports: None Worsens with: Reports: None Associated Symptoms: Reports: No Other Symptoms Right Hand Pain Score (Numeric/FACES): 7 - Related Data Allergies Allergy/AdvReac Type Severity Reaction Status Date / Time No Known Allergies Allergy Verified 02/01/20 02:04 Home Meds: Home Meds Acetaminophen/HYDROcodone [[place] 325-5 MG] 1 tab PO Q4H PRN 14 Days #20 tablet 02/01/20 [Rx] Ibuprofen 600 mg PO Q6H PRN 20 Days #80 tablet 02/01/20 [Rx] Hydrocodone/Acetaminophen [Hydrocodone-Acetamin 5-325 mg] 1 - 2 each PO Q6HR PRN #10 tablet 11/23/20 [Rx] Hydrocodone/Acetaminophen [Hydrocodone-Acetamin 5-325 mg] 1 - 2 each PO Q6HR PRN #10 tablet 11/23/20 [Rx] Past Medical History - Past Health History Medical/Surgical History: Denies Medical/Surgical History HEENT History: Reports: None Cardiovascular History: Reports: Hypertension Gastrointestinal History: Reports: Pancreatitis Endocrine/Metabolic History: Reports: Obesity/BMI 30+ Dermatologic History: Reports: Other (See Below) Other Dermatologic History: chest/back acne - Past Surgical History HEENT Surgical History: Reports: Oral Surgery Other HEENT Surgeries/Procedures: wisdom teeth removed GI Surgical History: Reports: Hernia, Inguinal Social & Family History - Family History Family Medical History: No Pertinent Family History Cardiac: Reports: Hypertension Oncologic: Reports: None - Tobacco Use Tobacco Use Status *Q: Current Every Day Tobacco User Years of Tobacco use: 24 Packs/Tins Daily: 0.5 Second Hand Smoke Exposure: No - Caffeine Use Caffeine Use: Reports: None - Recreational Drug Use Recreational Drug Use: No - Living Situation & Occupation Living situation: Reports: , with Spouse, with Family (2 daughters, 1 son) 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) ED ROS GENERAL - Review of Systems Review Of Systems: See Below Constitutional: Reports: No Symptoms HEENT: Reports: No Symptoms Respiratory: Reports: No Symptoms Cardiovascular: Reports: No Symptoms Endocrine: Reports: No Symptoms GI/Abdominal: Reports: No Symptoms : Reports: No Symptoms Musculoskeletal: Reports: Other (laceration to the right hand) ED EXAM, SKIN/RASH Exam: See Below Exam Limited By: No Limitations General Appearance: Alert, No Apparent Distress Ears: Normal External Exam Nose: Normal Inspection Head: Atraumatic, Normocephalic Neck: Normal Inspection Respiratory/Chest: No Respiratory Distress Extremities: Other (Right hand has a 1cm laceration to the volar aspect over the 2nd metacarpal. He has some numbness distally. He can move his finger but he does have morgan.) ED SKIN PROCEDURES - Laceration/Wound Repair Right Hand Appearance: Subcutaneous, Linear Distal NVT: Neuro & Vascular Intact, No Tendon Injury Skin Prep: Saline Exploration/Debridement/Repair: Wound Explored, In a Bloodless Field Closed with: Wound Adhesive Lac/Wound length In cm: 1 Tetanus Status Addressed: Yes Complications: No Course - Vital Signs Last Recorded V/S: Last Vital Signs Temp 98.8 F 11/23/20 13:53 Pulse 86 11/23/20 13:53 Resp 16 11/23/20 13:53 BP Pulse Ox 98 11/23/20 13:53 - Orders/Labs/Meds Orders: Active Orders 24 hr Category Date Time Status Hand Comp Min 3V Rt [CR] Stat Exams 11/23/20 14:03 Taken Meds: Medications Discontinued Medications Generic Name Dose Route Start Last Admin Trade Name Mango PRN Reason Stop Dose Admin Lidocaine HCl 10 ml 11/23/20 14:04 11/23/20 14:10 Lidocaine 1% 10 Ml Mdv INJECT 11/23/20 14:05 10 ml ONETIME ONE Administration - Re-Assessments/Exams Free Text/Narrative Re-Assessment/Exam: 11/23/20 14:55 I did an x-ray and there was no fracture or foreign body. He did not want me to do sutures so I did wound adhesive. Departure - Departure Time of Disposition: 15:00 Disposition: Home, Self-Care 01 Condition: Good Clinical Impression: Puncture wound of hand, right Qualifiers: Encounter type: initial encounter Foreign body presence: without foreign body Qualified Code(s): S61.431A - Puncture wound without foreign body of right hand, initial encounter - Discharge Information *PRESCRIPTION DRUG MONITORING PROGRAM REVIEWED*: Not Applicable *COPY OF PRESCRIPTION DRUG MONITORING REPORT IN PATIENT AGUILAR: Not Applicable Prescriptions: Hydrocodone/Acetaminophen [Hydrocodone-Acetamin 5-325 mg] 1 - 2 each PO Q6HR PRN #10 tablet PRN Reason: Pain Referrals: PCP,None [Primary Care Provider] - Additional Instructions: Let the adhesive set up for a couple hours and then you can wash your hand like normal. The adhesive will wear off over 7 to 10 days. Look for any signs of infection such as redness, swelling, pain, or discharge. If you see any of these signs please return. You may need oral antibiotics. Sepsis Event Note (ED) - Evaluation Sepsis Screening Result: No Definite Risk - Focused Exam Vital Signs: Vital Signs Temp Pulse Resp Pulse Ox 11/23/20 13:53 98.8 F 86 16 98 - My Orders Last 24 Hours: My Active Orders 11/23/20 14:03 Hand Comp Min 3V Rt [CR] Stat - Assessment/Plan Last 24 Hours: My Active Orders 11/23/20 14:03 Hand Comp Min 3V Rt [CR] Stat
--- NOTE | 2020-11-23 15:20 | CR ---
Right hand: 4 views of the right hand were obtained. Comparison: No prior hand or finger study is available. Soft tissue air is noted in a volar location at the base of the second finger. Soft tissue swelling is also noted. Bony structures show normal maintenance of joint spaces. No acute fracture, dislocation or other bony abnormality is appreciated. Impression: 1. Soft tissue swelling and soft tissue air. 2. No acute osseous abnormality is appreciated. Diagnostic code #3
== END 2020-11-23 15:15 | disposition home or self-care (01) ==
LOC: JD.ED 13:50
DX: S61.431A Puncture wound without foreign body of right hand, initial encounter (principal); I10 Essential (primary) hypertension; E66.9 Obesity, unspecified; Z72.0 Tobacco use; Z68.41 Body mass index [BMI] 40.0-44.9, adult; W26.8XXA Contact with other sharp object(s), not elsewhere classified, initial encounter
CPT/HCPCS: 12001; 73130-26-RT; 73130-RT; 99283; 99283-25

== ENCOUNTER 2021-05-03 22:05 | Emergency (ER) | payer MEDICAID ==
[2021-05-03 22:16] VITALS: BP 154/92; PULSE 93
[2021-05-03] MEDS ORDERED: Ondansetron 4 MG/2 ML SDV IVPUSH ONE (23:25)
[2021-05-03] MEDS ORDERED: HYDROmorphone 1 MG/ML Syringe IVPUSH STA (23:25)
[2021-05-03] MEDS ORDERED: Sodium Chloride 0.9% 1,000 ML IV SCH (23:30)
--- NOTE | 2021-05-03 23:31 | EDM.PDOC ---
ED HPI GENERAL MEDICAL PROBLEM - General Chief Complaint: Abdominal Pain Stated Complaint: [facility] Time Seen by Provider: 05/03/21 23:17 Source of Information: Reports: Patient History Limitations: Reports: No Limitations - History of Present Illness INITIAL COMMENTS - FREE TEXT/NARRATIVE: Mr. Hernandez is a very pleasant 30-year-old gentleman who now presents the ED by EMS after his 30 pound child jumped 4 feet, landing on his upper abdomen around 20:45 tonight. He is complaining of sharp/stabbing pain to his epigastric area. He states that the pain does not radiate up into his chest. He denies associated nausea or vomiting. The patient states that he ate some crackers upon arrival to the ED around 22:00. His last meal prior to that was lunch. Here in the ED, the patient's initial BP is found to be mildly elevated at 154/92, otherwise, he is hemodynamically stable, afebrile, saturating 93% on room air. He appears to be quite uncomfortable, groaning, and having difficulty answering questions. Prior to this evening, the patient denies having a recent fever, chills, sore throat, ear pain, nasal or sinus congestion, cough, dyspnea, chest pain, pa lpitations, nausea, vomiting, constipation, diarrhea, abdominal pain, urinary symptoms, recent weight gain or weight loss, recent bloody bowel movements or black bowel movements, recent joint aches, headaches, or rashes. The patient does not have a PCP. He has not received a COVID vaccination. Treatments SCIENTIFIC MANAGER: Reports: IV/IO, Other (see below) Other Treatments SCIENTIFIC MANAGER: 50 Fentanyl IVP, 50 Fentanyl IN, 1 mg dilaudid IVP Right Lower Abdomen Pain Score (Numeric/FACES): 6 - Related Data Allergies Allergy/AdvReac Type Severity Reaction Status Date / Time No Known Allergies Allergy Verified 05/03/21 22:14 Home Meds: Home Meds Acetaminophen/HYDROcodone [[place] 325-5 MG] 1 tab PO Q4H PRN 14 Days #20 tablet 02/01/20 [Rx] Ibuprofen 600 mg PO Q6H PRN 20 Days #80 tablet 02/01/20 [Rx] Hydrocodone/Acetaminophen [HYDROcodone-Acetaminophen 5-325 MG] 1 - 2 each PO Q6HR PRN #10 tablet 11/23/20 [Rx] Hydrocodone/Acetaminophen [HYDROcodone-Acetaminophen 5-325 MG] 1 - 2 each PO Q6HR PRN #10 tablet 11/23/20 [Rx] Past Medical History Cardiovascular History: Reports: Hypertension (untreated) Gastrointestinal History: Reports: Pancreatitis (steroid-induced?) Endocrine/Metabolic History: Reports: Obesity/BMI 30+ - Past Surgical History HEENT Surgical History: Reports: Oral Surgery (dental extractions) GI Surgical History: Reports: Hernia, Inguinal (left) Social & Family History - Tobacco Use Tobacco Use Status *Q: Current Some Day Tobacco User Tobacco Use Within Last Twelve Months: Smokeless Tobacco (Chews 1 can/day) - Caffeine Use Caffeine Use: Reports: None - Alcohol Use Alcohol Use History: Yes Alcohol Use Frequency: Socially (occasionally to excess) - Recreational Drug Use Recreational Drug Use: Yes Drug Use in Last 12 Months: No Recreational Drug Type: Reports: Marijuana/Hashish (last smoked in [place]) - Living Situation & Occupation Living situation: Reports: , with Spouse, with Family (2 daughters, 1 son) 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 ED EXAM, GI/ABD - Physical Exam Exam: See Below Exam Limited By: No Limitations General Appearance: Alert, WD/WN, Moderate Distress (appears to be quite uncomfortable) Eyes: Bilateral: Normal Appearance, EOMI Ears: Normal External Exam, Hearing Grossly Normal Nose: Normal Inspection Throat/Mouth: Normal Inspection, Normal Lips, Normal Voice, No Airway Compromise Head: Atraumatic, Normocephalic Neck: Normal Inspection, Full Range of Motion Respiratory/Chest: No Respiratory Distress, Lungs Clear, Normal Breath Sounds, No Accessory Muscle Use Cardiovascular: Normal Peripheral Pulses, Regular Rate, Rhythm, No Edema, No Gallop, No JVD, No Murmur, No Rub GI/Abdominal Exam: Normal Bowel Sounds (active!), Soft, No Organomegaly, No Distention, No Abnormal Bruit, No Mass, Tender (Quadrant/epigastrium only. Grossly nontender elsewhere.) Back Exam: Normal Inspection, Full Range of Motion, NT Extremities: Normal Inspection, Normal Range of Motion, No Pedal Edema, Normal Capillary Refill Neurological: Alert, Oriented, Normal Cognition, No Motor/Sensory Deficits Skin Exam: Warm, Dry, Intact, Normal Color, No Rash Course - Vital Signs Last Recorded V/S: Last Vital Signs Temp 36.9 C 05/03/21 22:14 Pulse 93 05/03/21 22:14 Resp 20 05/03/21 22:14 BP 154/92 H 05/03/21 22:14 Pulse Ox 93 L 05/03/21 22:14 - Orders/Labs/Meds Orders: Active Orders 24 hr Category Date Time Status Abdomen Pelvis w Cont [CT] Stat Exams 05/03/21 23:25 Taken Sodium Chloride 0.9% [Normal Saline] 1,000 ml Med 05/03/21 23:30 Active IV ASDIRECTED Medication Orders Sodium Chloride (Normal Saline) 1,000 mls @ 150 mls/hr IV ASDIRECTED MARIBEL Last Admin: 05/03/21 23:35 Dose: 150 mls/hr Documented by: ALEXANDRE Labs: Laboratory Tests 05/03/21 05/03/21 05/03/21 Range/Units 23:35 23:44 23:44 WBC 7.19 (4.23-9.07) K/mm3 RBC 4.80 (4.63-6.08) M/mm3 Hgb 13.6 L D (13.7-17.5) gm/dl Hct 39.8 L (40.1-51.0) % MCV 82.9 D (79.0-92.2) fl MCH 28.3 (25.7-32.2) pg MCHC 34.2 (32.2-35.5) g/dl RDW Std Deviation 39.7 (35.1-43.9) fL Plt Count 214 (163-337) K/mm3 MPV 9.4 (9.4-12.3) fl Neutrophils % (Manual) 60 (40-60) % Band Neutrophils % 0 (0-10) % Lymphocytes % (Manual) 29 (20-40) % Atypical Lymphs % 0 % Monocytes % (Manual) 7 (2-10) % Eosinophils % (Manual) 3 (0.8-7.0) % Basophils % (Manual) 1 (0.2-1.2) Platelet Estimate Adequate RBC Morph Comment Normal Sodium 141 (136-145) mEq/L Potassium 4.4 (3.5-5.1) mEq/L Chloride 108 H (98-107) mEq/L Carbon Dioxide 28 (21-32) mEq/L Anion Gap 9.4 (5-15) BUN 23 H (7-18) mg/dL Creatinine 1.1 (0.7-1.3) mg/dL Est Cr Clr Drug Dosing 103.63 mL/min Estimated GFR (MDRD) > 60 (>60) mL/min BUN/Creatinine Ratio 20.9 H (14-18) Glucose 103 H (70-99) mg/dL Calcium 8.3 L (8.5-10.1) mg/dL Total Bilirubin 0.2 (0.2-1.0) mg/dL AST 26 (15-37) U/L ALT 40 (16-63) U/L Alkaline Phosphatase 84 (46-116) U/L Total Protein 6.3 L (6.4-8.2) g/dl Albumin 3.7 (3.4-5.0) g/dl Globulin 2.6 gm/dL Albumin/Globulin Ratio 1.4 (1-2) Lipase 69 L (73-393) U/L SARS-CoV-2 RNA (AMBER) Negative (NEGATIVE) Meds: Medications Generic Name Dose Route Start Last Admin Trade Name Freq PRN Reason Stop Dose Admin Sodium Chloride 1,000 mls @ 150 mls/hr 05/03/21 23:30 05/03/21 23:35 Normal Saline IV 150 mls/hr ASDIRECTED MARIBEL Administration Discontinued Medications Generic Name Dose Route Start Last Admin Trade Name Freq PRN Reason Stop Dose Admin Diatrizoate Meglum/Diatrizoate Sod 60 ml 05/04/21 00:44 05/04/21 01:06 Diatrizoate Meglumine/Diatrizoate Sodium 37% 120 Ml Bottle PO 05/04/21 00:45 60 ml ONETIME ONE Administration Hydromorphone HCl 1 mg 05/03/21 23:25 05/03/21 23:36 Hydromorphone 1 Mg/Ml Syringe IVPUSH 05/03/21 23:26 1 mg ONETIME STA Administration Iopamidol 50 ml 05/04/21 00:44 05/04/21 01:07 Iopamidol 612 Mg/Ml 50 Ml Sdv IVPUSH 05/04/21 00:45 50 ml ONETIME ONE Administration Iopamidol 100 ml 05/04/21 00:44 05/04/21 01:07 Iopamidol 612 Mg/Ml 100 Ml Bottle IVPUSH 05/04/21 00:45 100 ml ONETIME ONE Administration Ondansetron HCl 4 mg 05/03/21 23:25 05/03/21 23:35 Ondansetron 4 Mg/2 Ml Sdv IVPUSH 05/03/21 23:26 4 mg ONETIME ONE Administration Sodium Chloride 10 ml 05/04/21 00:44 05/04/21 01:07 Sodium Chloride 0.9% 10 Ml Sdv FLUSH 05/04/21 00:45 10 ml ONETIME ONE Administration - Re-Assessments/Exams Free Text/Narrative Re-Assessment/Exam: 05/03/21 23:28 Although the patient's bowel sounds are active, he appears to be quite uncomfortable, leading to concern of an intra-abdominal injury, such as a liver laceration. I have ordered a work-up that includes several blood tests and a CT of the abdomen and pelvis with oral (if he can drink it) and IV contrast. I have also ordered a swab for the SARS-CoV-2 virus in the event that he needs to be admitted or transferred. In the meantime, the patient will be treated with some IV Dilaudid, IV Zofran, and IV fluid. 05/04/21 01:18 The patient's CBC is remarkable for an H/H slightly depressed at 13.6/39.8, with the remainder of his CBC being unremarkable. His CMP is remarkable for a BUN slightly elevated at 23 with a Cr normal at 1.1, and slight hyperglycemia of 103, and the remainder of his CMP being unremarkable. His lipase level is within normal limits at 69. His swab for the SARS-CoV-2 virus is negative. 05/04/21 01:56 CT of the abdomen and pelvis with oral and IV contrast is read by Blair as "Right L5 pars defect otherwise unremarkable examination." 05/04/21 02:20 Test results discussed with the patient and his (now present). The patient still appears to be uncomfortable, however, his work-up is unremarkable, finding no significant injury. I have no choice but to discharge the patient home, not only because this facility is on diversion, but because there is nothing that we would do other than pain control if admitted. I will discharge the patient home with [facility] prescriptions for both [place] and Zofran. I will give him a referral to the clinic, should his pain persist. Departure - Departure Time of Disposition: 02:26 Disposition: Home, Self-Care 01 Condition: Good Clinical Impression: Abdominal pain due to injury - Discharge Information *PRESCRIPTION DRUG MONITORING PROGRAM REVIEWED*: Not Applicable *COPY OF PRESCRIPTION DRUG MONITORING REPORT IN PATIENT AGUILAR: Not Applicable Referrals: PCP,None [Primary Care Provider] - Shea Leo NP [Nurse Practitioner] - Forms: ED Department Discharge Additional Instructions: You were seen in the emergency room for abdominal pain after your child jumped onto your abdomen. Work-up in the ER included several blood tests, a swab for the SARS-CoV-2 virus, and a CT of your abdomen and pelvis with oral and IV contrast. Your entire work-up was unremarkable, and does not explain the cause of your pain. No injury was seen on the CT scan. We recommend that you take [id number] ibuprofen, 3 tablets (600 mg) up to every 8 hours, with food, as needed for discomfort. You may take 1 to 2 tablets of the prescription opioid [place] up to every 6 hours, as needed for pain not relieved by ibuprofen. If you take [place], do not drive or operate heavy machinery for 12 hours afterwards. [place] may cause constipation, so consider taking a stool softener. You may dissolve 1 tablet of Zofran ODT on your tongue up to every 8 hours, as needed for nausea/vomiting. If your pain persists, please follow-up with Shea Leo NP, or one of the other providers in the clinic, for further evaluation. If any other problems, please do not hesitate to return to the ER. Sepsis Event Note (ED) - Evaluation Sepsis Screening Result: No Definite Risk - Focused Exam Vital Signs: Vital Signs Temp Pulse Resp BP Pulse Ox 05/03/21 22:14 36.9 C 93 20 154/92 H 93 L - My Orders Last 24 Hours: My Active Orders 05/03/21 23:25 Abdomen Pelvis w Cont [CT] Stat 05/03/21 23:30 Sodium Chloride 0.9% [Normal Saline] 1,000 ml IV ASDIRECTED - Assessment/Plan Last 24 Hours: My Active Orders 05/03/21 23:25 Abdomen Pelvis w Cont [CT] Stat 05/03/21 23:30 Sodium Chloride 0.9% [Normal Saline] 1,000 ml IV ASDIRECTED
[2021-05-04] MEDS ORDERED: Sodium Chloride 0.9% 10 ML SDV FLUSH ONE (00:44)
[2021-05-04] MEDS ORDERED: Diatrizoate Meglumine/Diatrizoate Sodium 37% 120 ML Bottle PO ONE (00:44)
[2021-05-04] MEDS ORDERED: Iopamidol 612 MG/ML 100 ML Bottle IVPUSH ONE (00:44)
[2021-05-04] MEDS ORDERED: Iopamidol 612 MG/ML 50 ML SDV IVPUSH ONE (00:44)
--- NOTE | 2021-05-04 07:15 | CT ---
CT abdomen and pelvis Technique: Multiple axial sections were obtained from above the dome of the diaphragm inferiorly through the pubic symphysis. Intravenous contrast was utilized. Delayed images were obtained through the bladder. Reconstructed coronal and sagittal images were obtained. Comparison: Prior CT abdomen and pelvis exam of 03/30/20. Findings: Visualized lung bases show minimal atelectasis. Liver shows no focal parenchymal abnormality. Gallbladder contains no calcified gallstones. Spleen size is normal. Adrenal gland on the right side shows a nodule measuring 1.8 cm. Left adrenal gland is normal. Pancreas shows no abnormality. Kidneys show symmetric contrast enhancement. No hydronephrosis or mass is seen. Delayed images show contrast within the distal ureters and within the bladder. Abdominal aorta shows no aneurysm. No retroperitoneal adenopathy or mesenteric abnormalities are seen. No pelvic mass or adenopathy is seen. Bone window settings were reviewed which show a unilateral spondylolytic defect within the L5-S1 level. No acute osseous abnormality is otherwise seen. Impression: 1. Small nodule within the right adrenal gland. This appears stable from prior CT exam. This presumably is benign. 2. 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 3. No acute abnormality is identified on CT study of the abdomen and pelvis. Diagnostic code #2 I agree with preliminary report from [facility] (with an additional note of small right adrenal nodule), finalized on 05/04/21, 2:54 AM CDT, code 2
== END 2021-05-04 02:38 | disposition home or self-care (01) ==
LOC: JD.ED 22:05
DX: R10.13 Epigastric pain (principal); G89.11 Acute pain due to trauma; I10 Essential (primary) hypertension; E66.9 Obesity, unspecified; Z68.35 Body mass index [BMI] 35.0-35.9, adult; Z72.0 Tobacco use; Z20.822 Contact with and (suspected) exposure to COVID-19
CPT/HCPCS: 36415; 74177; 80053; 83690; 85007; 85027; 87635; 96374; 96375; 99284; J1170; J2405; J7030; Q9963; Q9967; U0002